=== PATIENT | female | born 1945 | race Caucasian/White ===

== ENCOUNTER 2019-11-02 16:45 | Emergency (ER) | payer MEDICARE, MEDICAID, SELFPAY ==
--- NOTE | ~2019-11-02 | XR_ITS ---
XR knee LT min 4V DATE: 11/02/2019 17:51 INDICATION: Patient fell and injured left knee. Left knee pain. TECHNIQUE: 4 views COMPARISON: 04/18/2017 left knee FINDINGS: Status post left knee arthroplasty since 04/18/2017. Diffuse osteopenia. No fracture or dislocation is evident. Mild suprapatellar knee joint effusion is suggested. No periosteal reaction or bone destruction. IMPRESSION: Left knee arthroplasty Osteopenia Mild knee joint effusion Reviewed, dictated and finalized at location A.
--- NOTE | ~2019-11-02 | XR_ITS ---
XR elbow RT 2V DATE: 11/02/2019 17:51 INDICATION: Fall. Right elbow injury, pain TECHNIQUE: 4 views COMPARISON: None FINDINGS: A small dorsal olecranon process spur is noted. Osteopenia. Osteoarthritis of the right elbow joint. No fracture or dislocation or joint effusion is detected. IMPRESSION: No fracture or dislocation or joint effusion Reviewed, dictated and finalized at location A.
--- NOTE | ~2019-11-02 | XR_ITS ---
XR forearm RT 2V DATE: 11/02/2019 18:05 INDICATION: Fall. Right forearm injury, pain TECHNIQUE: AP and lateral views COMPARISON: None FINDINGS: Diffuse prominent osteopenia. Plate and screws are noted along the distal radius. Mild dorsal olecranon process spurring. No recent fracture or dislocation is evident. Normal alignmen t at the elbow and wrist joints. Prominent osteoarthritic change at the first carpometacarpal joint. There is osteoarthritis at the fi rst metacarpophalangeal joint as well. IMPRESSION: Prominent diffuse osteopenia Status post ORIF distal radial fracture No recent fracture or dislocation is detected Prominent osteoarthritis at the first carpometacarpal joint Reviewed, dictated and finalized at location A.
--- NOTE | ~2019-11-02 | XR_ITS ---
XR hip LT min 3V w AP pelvis DATE: 11/02/2019 17:52 INDICATION: Fall. Left hip injury, pain TECHNIQUE: AP pelvis. AP, lateral and crosstable lateral views of left hip COMPARISON: None FINDINGS: Status post bilateral bipolar hip joint replacement. No pelvic or hip fracture or dislocati on is detected. No periosteal reaction or bone destruction is detected. There is prominent dextroscoliosis and degenerative disc disease of the lumbar spine. The pubic symph ysis and sacroiliac joints are intact. IVC filter device is noted. IMPRESSION: No recent pelvic or left hip fracture is detected Status post bilateral hip arthroplasties Osteopenia Reviewed, dictated and finalized at location A.
[2019-11-02 16:52] VITALS: BP 122/67; PULSE 108; RESP 18; TEMP 36.4; O2SAT 97
[2019-11-02 16:57] VITALS: BP 122/67; PULSE 108; RESP 18; TEMP 36.4; O2SAT 97
--- NOTE | 2019-11-02 16:58 | ED.FALL ---
HPI - Fall General Chief Complaint: Fall Stated Complaint: fall Time Seen by Provider: 11/02/19 16:52 History of Present Illness HPI Narrative: She had a fall about 5 hours ago. She was walking back into the house after taking out the trash. She does not recall feeling dizzy, weak, or passing out. She fell backwards and landed on her buttocks and right elbow. She only reports pain in the right elbow and left knee to me, although she did tell the nurse that her left hip was bothering her as well. Related Data Home Medications Medication Instructions Recorded Confirmed apixaban [Eliquis] mg 11/02/19 cyanocobalamin (vitamin B-12) 11/02/19 ergocalciferol (vitamin D2) 11/02/19 furosemide 11/02/19 levothyroxine 11/02/19 Allergies Allergy/AdvReac Type Severity Reaction Status Date / Time morphine Allergy Unknown UNKNOWN Verified 11/02/19 16:58 Review of Systems Review of Systems: All systems reviewed & are unremarkable except as noted in HPI and below Constitutional: Constitutional: Denies fever(s) and Denies weakness Eyes: Eyes: Denies change in vision ENT: Denies dizziness Cardiovascular: Cardiovascular: Reports chest pain, Denies rapid heart rate, Reports radiating jaw, neck or arm pain and Denies dyspnea Respiratory: Respiratory: Denies dyspnea Gastrointestinal: Gastrointestinal: Reports heartburn, Reports nausea and Denies vomiting Musculoskeletal: Musculoskeletal: Denies numbness Neurologic: Denies dizziness, Denies numbness and Denies weakness [facility] Family History Family History Other Cerebrovascular accident Diabetes mellitus Family history of arthritis Family history of cardiovascular disease Family history of malignant neoplasm Family history of mental disorder Hypertension Social History Social History Smoking status: Never smoker Alcohol intake: never Gender identity (if verbalized by the patient): Female Sexual Orientation (if Verbalized by the Patient): Straight or Heterosexual Exam Const: General: no acute distress and alert Orientation/consciousness: patient oriented x3 HENMT: Head: normal to inspection Resp: Effort & Inspection: normal respiratory effort Auscultation: clear to auscultation bilaterally Cardio: Rate: regular rate Rhythm: regular rhythm Skin: Other: skin tear to right elbow Extrem: Other: Tenderness over left patella Course Vital Signs Vital signs: Vital Signs Temperature 36.4 C 11/02/19 16:52 Pulse Rate 108 H 11/02/19 16:52 Respiratory Rate 18 11/02/19 16:52 Blood Pressure 122/67 11/02/19 16:52 Pulse Oximetry 97 11/02/19 16:52 Temperature 36.4 C 11/02/19 19:03 Pulse Rate 100 11/02/19 18:56 Respiratory Rate 17 11/02/19 18:56 Blood Pressure 139/76 11/02/19 18:56 Pulse Oximetry 90 11/02/19 18:56 MDM - Fall MDM Narrative Medical decision making narrative: No fractures. Ambulating with antalgic gait. She feels safe for discharge. Discharge Plan Discharge Clinical Impression: Effusion of knee joint, Skin tear of left elbow without complication, Hip pain Patient Disposition: Home, Self-Care Condition: Stable Instructions: Contusion in Adults (ED) Prescriptions: New tramadol 50 mg tablet 50 mg PO Q6H PRN (Reason: pain) Qty: 10 RF: 0 No Action furosemide 40 mg tablet RF: 0 levothyroxine 100 mcg tablet RF: 0 cyanocobalamin (vitamin B-12) 1,000 mcg/mL solution RF: 0 ergocalciferol (vitamin D2) 1,250 mcg (50,000 unit) capsule RF: 0 Eliquis 5 mg tablet RF: 0 Follow-up/Referrals: Harvey,Dax Abraham MD [Primary Care Provider] - Discharge Date/Time: 11/02/19 18:57
--- NOTE | 2019-11-02 18:29 | PC.NURSE ---
ambulated pt per nurse request
[2019-11-02] MEDS: traMADol HCL 50 MG TABLET PO (18:36)
--- NOTE | 2019-11-02 18:41 | PC.NURSE ---
Attempted to call patients family Rebeca at [phone] and Jessica at [phone]. No return call on patients discharge and needing a ride home.
--- NOTE | 2019-11-02 18:47 | PC.NURSE ---
Patients daughter Jessica here at this time.
[2019-11-02 18:56] VITALS: BP 139/76; PULSE 100; RESP 17; O2SAT 90
[2019-11-02 19:03] VITALS: TEMP 36.4
== END 2019-11-02 18:57 | disposition home or self-care (01) ==
PROVIDERS: Emergency Provider Emergency Medicine; PCP Internal Medicine
DX: S51.011A Laceration without foreign body of right elbow, initial encounter (principal); M25.462 Effusion, left knee; M25.552 Pain in left hip
CPT/HCPCS: 73070; 73090; 73502; 73564; 99284; A9270

== ENCOUNTER 2020-07-03 08:49 | Outpatient (CLI) | payer MEDICARE, MEDICAID, SELFPAY ==
[2020-07-03 09:26] LABS: Basophils Absolute Auto 0.1 K/mm3 (0.0-0.1); Basophils Percent Auto 1.1 % (0.2-1.2); Eosinophils Absolute Auto 0.1 K/mm3 (0-0.3); Eosinophils Percent Auto 1.4 % (0-4.4); Hematocrit 40.7 % (37.0-47.0); Hemoglobin 12.8 g/dL (12.0-15.0); Immature Granulocyte Absolute 0.03 K/mm3 (0.00-0.031); Immature Granulocyte Percent A 0.4 % (0-0.5); Lymphocytes Absolute Auto 2.14 K/mm3 (0.9-3.2); Mean Corpuscular HGB Conc 31.4 g/dl (32-36); Mean Corpuscular Hemoglobin 30.1 pg (26-34); Mean Corpuscular Volume 95.8 fl (80-100); Mean Platelet Volume 9.4 fl (7.4-10.4); Monocytes Absolute Auto 0.7 K/mm3 (0.1-0.6); Monocytes Percent Auto 8.3 % (2.6-8.5); Neutrophils Absolute Auto 4.9 K/mm3 (1.3-6.7); Neutrophils Percent Auto 61.8 % (45.5-73.1); Platelet Count Result 319 k/mm3 (150-375); Red Blood Count 4.25 M/mm3 (4.2-5.4); Red Cell Distribution Width 15.1 % (11.5-14.5); White Blood Count 7.9 K/mm3 (4.5-10.0)
[2020-07-03 09:34] LABS: Total Protein Urine Random 11 mg/dL
[2020-07-03 09:42] LABS: Albumin Level 3.9 g/dL (3.5-5.1); Anion Gap 8 mmol/L (8-16); Blood Urea Nitrogen 22 mg/dL (7-17); Calcium 8.5 mg/dL (8.4-10.2); Carbon Dioxide 22 mmol/L (22-30); Chloride 110 mmol/L (98-107); Estimated Glomerular Filt Rate 44; Glucose 94 mg/dL (65-105); Phosphorus 3.3 mg/dL (2.5-4.5); Potassium 3.2 mmol/L (3.4-5.0); Sodium 140 mmol/L (137-145); Uric Acid 8.5 mg/dL (2.5-7.5)
[2020-07-03 09:54] LABS: Parathyroid Intact 187.3 pg/mL (7.5-53.5)
[2020-07-03 10:28] LABS: Vitamin D 25 Hydroxy 48.5 ng/mL
[2020-07-03 10:39] LABS: Add Urine Microscopic? NO; Appearance Urine Clear (Clear); Bilirubin Urine Negative (Negative); Blood Urine Negative (Negative); Color Urine Colorless (Yellow); Creatinine Urine 8.5 mg/dL; Glucose Urine UA Negative (Negative); Ketones Urine Negative (Negative); Leukocyte Esterase Ur Negative LEU/UL (NEGATIVE); Nitrate Urine Negative (Negative); Protein Urine Negative (Negative); Specific Grav Ur 1.006 (1.001-1.035); Ur Ttl Prot Creatinine Ratio 1.29 mg/mg (0-0.20); Urobilinogen Urine Negative mg/dL (<2.0)
== END 2020-07-03 08:50 | disposition home or self-care (01) ==
PROVIDERS: PCP Internal Medicine
DX: E79.0 Hyperuricemia without signs of inflammatory arthritis and tophaceous disease (principal); E55.9 Vitamin D deficiency, unspecified; K57.30 Diverticulosis of large intestine without perforation or abscess without bleeding; M81.0 Age-related osteoporosis without current pathological fracture; I50.9 Heart failure, unspecified; N18.30 Chronic kidney disease, stage 3 unspecified; Z86.39 Personal history of other endocrine, nutritional and metabolic disease
CPT/HCPCS: 36415; 80069; 81003; 81050; 82306; 82570; 83970; 84156; 84550; 85025

== ENCOUNTER → 2020-12-24 12:50 | Outpatient (CLI) | payer MEDICARE, SELFPAY ==
--- NOTE | ~2020-12-24 | DEXA_ITS ---
Bone Density Report Name: Denia Tai Age: 75 Sex: Female Ethnicity: White Date of : 1945 Indication: postmenopausal; screening for osteoporosis; height loss; prior fracture; Referring Provider: JEWEL, LOVE Abraham Study: Bone densitometry was performed. Exam Date: December 24, 2020 Accession number: [id number] Bone Density: Region BMD T-score Z-score Classification AP Spine (L1-L4) 1.937 8.1 10.4 Normal World Health Organization criteria for BMD impression classify patients as: Normal (T-score at or above -1.0), Osteopenia (T-score between -1.0 and -2.5), or Osteoporosis (T-score at or below -2.5). Previous Exams: Region Exam Age BMD T-score BMD Change BMD Change Date g/cm2 vs Baseline vs Previous AP Spine(L1-L4) 12/24/2020 75 1.937 8.1 0.046* 0.046* 01/17/2018 72 1.891 7.7 *Denotes significance at 95% confidence level, LSC for AP Spine = 0.022 g/cm2 Clinical Information Provided by Patient: Has had a low trauma fracture Has used the following medications: Vitamin D Patient maximum height was 71 Menopause Age: 47 No regular weight bearing exercise Drinks caffeinated beverages Onset of menses at age 15 Number of children 5 Impression: The patient has normal bone mass. The patient has risk factors, including: previous fracture. No significant bone loss was observed. Discussion: LOW RISK OF FRACTURE; BONE DENSITY IS WELL ABOVE THE MINIMUM DESIRABLE LEVEL AND ABOVE AVERAGE FOR AGE AND SEX AT ALL SKELETAL SITES TESTED. This person's bone density is above expected limits for age and sex. This is rarely clinically significant, but should be pursued if there are significant musculoskeletal complaints. The patient should follow a healthful lifestyle (good nutrition with adequate calcium and vitamin D, and appropriate weight-bearing exercise). Follow-Up: Consider repeating this study in 5 years or sooner if there is some new clinical indication. Reported by: [facility] on 12/24/2020 1:38:00 PM. Reviewed, dictated and finalized at location AShaquille OCHOA
--- NOTE | ~2020-12-24 | MM_ITS ---
EXAMINATION: MM screening [facility] BI w lino HISTORY: Screening mammogram TECHNIQUE: Craniocaudal and mediolateral oblique 3-D tomosynthesis images were obtained and synthetic 2-D images were generated. CAD analysis was submitted and interpreted. COMPARISON: 05/09/2019, 01/17/2018 12/15/2016 BREAST PARENCHYMAL COMPOSITION: There are scattered areas of fibroglandular density. FINDINGS: There is no evidence of suspicious mass, calcification, or architectural distortion to sugg est malignancy in either breast. There has been no suspicious interval change. IMPRESSION: 1. No mammographic evidence of malignancy. 2. Recommend routine screening mammography in one year. BI-RADS Category 1: Negative Reviewed, dictated and finalized at location A.
== END ==
PROVIDERS: PCP Internal Medicine; Visit Provider Internal Medicine
DX: Z12.31 Encounter for screening mammogram for malignant neoplasm of breast (principal); Z78.0 Asymptomatic menopausal state
CPT/HCPCS: 77063; 77067; 77080

== ENCOUNTER → 2022-07-11 15:33 | Outpatient (CLI) | payer MEDICARE, SELFPAY ==
--- NOTE | ~2022-07-11 | MM_ITS ---
EXAMINATION: MM screening [facility] w [facility] HISTORY: Screening mammogram TECHNIQUE: Craniocaudal and mediolateral oblique 3-D tomosynthesis images were obtained and synthetic 2-D images were generated. CAD analysis was submitted and interpreted. COMPARISON: 12/24/2020, 05/09/2019, 01/17/2018 bilateral screening mammogram examinations BREAST PARENCHYMAL COMPOSITION: There are scattered areas of fibroglandular density. FINDINGS: There is no evidence of suspicious mass, calcification, or architectural distortion to sugg est malignancy in either breast. There has been no suspicious interval change. IMPRESSION: 1. No mammographic evidence of malignancy. 2. Recommend routine screening mammography in one year. BI-RADS Category 1: Negative Reviewed, dictated and finalized at location A.
== END ==
PROVIDERS: PCP Internal Medicine; Visit Provider Internal Medicine
DX: Z12.31 Encounter for screening mammogram for malignant neoplasm of breast (principal)
CPT/HCPCS: 77063; 77067

== ENCOUNTER 2023-02-04 12:32 | Emergency (ER) | payer MEDICARE, MEDICAID, SELFPAY ==
[2023-02-04] VITALS (52 sets, daily range): BP systolic 84–127; BP diastolic 42–79; PULSE 60–114; RESP 12–27; TEMP 34.9–36.6; O2SAT 96–100
--- NOTE | ~2023-02-04 | CT_ITS ---
EXAMINATION: CT abdomen pelvis w con DATE: 02/04/2023 14:46 INDICATION: diarrhea, hypotension TECHNIQUE: Computed tomography (CT) of the abdomen and pelvis was performed with 100 mL Omnipaque-350 intravenous contrast. Automated exposure control and iterative reconstruction technique were employe d. The dose-length product was 577.34 mGy-cm. COMPARISON: None. FINDINGS: Lower thorax: Mitral and possible coronary artery calcifications. Senescent changes in the lung bases . Liver: Normal. Biliary/Gallbladder: Gallbladder is normal. Mild intra and extrahepatic bile duct dilation, stable. Pancreas: Mild atrophy. Prominent duct, stable. 6 mm uncinate prostate cyst. Spleen: Normal. Adrenals:No mass. Kidneys: No suspicious mass, obstructing stone, or hydronephrosis. GI tract: Prior gastric surgery. No small or large bowel dilation. Normal appendix. Mesentery/Peritoneum: No ascites, mass, or free air. Retroperitoneum: No mass. Atherosclerotic abdominal aortic and/or arterial calcifications. IVC filter . Pelvis: Obscuration by metal artifact. Pelvic organs are grossly within normal limits. Soft Tissues: Soft tissues and body wall unremarkable. Bones: No acute osseous finding. Uncomplicated partially visualized bilateral hip arthroplasties. Di ffuse osseous sclerosis, unchanged. Stable mild wedge compression fractures at T10-T12 IMPRESSION: No acute abdominopelvic process detected. 6 mm uncinate process cyst, recommend follow-up in [address]. Reviewed, dictated and finalized at location K. IMPRESSION: No acute abdominopelvic process detected. 6 mm uncinate process cyst, recommend follow-up in 2 years with pancreas protoc ol CT.
--- NOTE | ~2023-02-04 | XR_ITS ---
XR chest 2V DATE: 02/04/2023 13:30 INDICATION: Weakness TECHNIQUE: AP and lateral views COMPARISON: 07/18/2018 CT chest FINDINGS: Cardiomegaly. Aortic calcification, ectasia and tortuosity. Mild atelectasis at the basilar left lower lobe. The lungs otherwise appear clear. No pleural effusion or pulmonary vascular congestion or pneumothorax is detected. Dextro scoliosis and degenerative change of the thoracolumbar spine. Postoperative change of the upper abdomen. IVC filter. IMPRESSION: Mild atelectasis at the basilar left lower lobe Cardiomegaly, aortic atherosclerosis Reviewed, dictated and finalized at location A.
--- NOTE | 2023-02-04 13:09 | PC.NURSE ---
report and care given to ELI Reilly. all questions answered.
--- NOTE | 2023-02-04 13:15 | PC.NURSE ---
Patient report received from ELI Caro. All questions answered and care of patient assumed.
--- NOTE | 2023-02-04 13:21 | ED.WEAKNESS ---
HPI - Weakness General Chief complaint: Weakness Stated complaint: weakness Time Seen by Provider: 02/04/23 13:15 History of Present Illness HPI Narrative: Patient is a 77-year-old female with a history of paroxysmal A-fib on Eliquis, CHF, hypothyroidism presenting with weakness. Patient states that she has had diarrhea for the last 3 to 4 days. She checks her blood pressure every day and it was in the 80s systolic this morning so she called her daughter who brought her in for evaluation. Patient states that she feels generally weak and like it is hard to walk. States that she felt lightheaded this morning. States that she still eating and drinking okay. Denies vomiting, dysuria, hematuria, abdominal pain. Denies chest pain, shortness of breath, cough. Related Data Home Medications Medication Instructions Recorded Confirmed apixaban 5 mg tablet (Eliquis) mg 11/02/19 11/11/22 cyanocobalamin (vitamin B-12) 11/02/19 11/11/22 1,000 mcg/mL injection solution ergocalciferol (vitamin D2) 1,250 11/02/19 11/11/22 mcg (50,000 unit) capsule furosemide 40 mg tablet 11/02/19 11/11/22 levothyroxine 100 mcg tablet 11/02/19 11/11/22 Allergies Allergy/AdvReac Type Severity Reaction Status Date / Time morphine Allergy Unknown UNKNOWN Verified 11/11/22 11:30 Review of Systems Review of Systems: All systems reviewed & are unremarkable except as noted in HPI and below PMFSH Surgical History Surgical History 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 Family History Family History Other Cerebrovascular accident Diabetes mellitus Family history of arthritis Family history of cardiovascular disease Family history of malignant neoplasm Family history of mental disorder Hypertension Social History Social History Smoking status: Never smoker Alcohol intake: never Gender identity (if verbalized by the patient): Female Sexual Orientation (if Verbalized by the Patient): Straight or Heterosexual Exam Narrative: GENERAL: Well-appearing, in no acute distress, very pleasant and cooperative HEAD: Normocephalic, atraumatic. EYES: PERRLA and EOMI. ENT: Mucous membranes tacky NECK: Supple. CHEST: Clear to auscultation. No respiratory distress. HEART: Regular rate and rhythm. Normal peripheral pulses. ABDOMEN: Soft, nontender, nondistended EXTREMITIES: Normal range of motion. No edema. SKIN: Warm, dry, no rash. NEURO: No focal deficits. Alert and oriented x3. PSYCH: Normal mood and affect. Course Vital Signs Vital signs: Vital Signs Temperature 97.9 F 02/04/23 12:38 Pulse Rate 93 02/04/23 12:38 Respiratory Rate 16 02/04/23 12:38 Blood Pressure 102/77 02/04/23 12:38 Pulse Oximetry 99 02/04/23 12:38 Oxygen Delivery Room Air 02/04/23 12:38 Temperature 94.9 F L 02/04/23 12:58 Pulse Rate 92 02/04/23 18:58 Respiratory Rate 14 02/04/23 18:58 Blood Pressure 120/42 L 02/04/23 18:58 Pulse Oximetry 99 02/04/23 18:58 Oxygen Delivery Room Air 02/04/23 12:38 MDM - Weakness MDM Narrative Medical decision making narrative: 77-year-old female presenting with generalized weakness, lightheadedness, hypotension. Blood pressures in the 80s over 60s on arrival. Afebrile. Exam remarkable for the above. Plan for blood work, fluids, CT abdomen pelvis. Blood work with mild hypokalemia. Otherwise unremarkable. No leukocytosis. Troponins negative x2. UA is unremarkable. Patient is negative for influenza and COVID. Chest x-ray without acute abnormalities. CT abdomen pelvis without acute abnormalities. There is a small pancreatic mass that just needs to be followed up on on an outpatient basis. Patient is tolerating p.o. intake. Blood pressure is improved following IV fluids. Orthostatic
[2023-02-04 13:25] LABS: Basophils Absolute Auto 0.1 K/mm3 (0.0-0.1); Eosinophils Absolute Auto 0.1 K/mm3 (0-0.3); Eosinophils Percent Auto 1.2 % (0-4.4); Hematocrit 42.7 % (37.0-47.0); Hemoglobin 13.5 g/dL (12.0-15.0); Immature Granulocyte Absolute 0.07 K/mm3 (0.00-0.031); Lymphocytes Absolute Auto 1.78 K/mm3 (0.9-3.2); Lymphocytes Percent Auto 25.9 % (18.3-44.2); Mean Corpuscular HGB Conc 31.6 g/dl (32-36); Mean Corpuscular Hemoglobin 31.1 pg (26-34); Mean Corpuscular Volume 98.4 fl (80-100); Mean Platelet Volume 9.8 fl (7.4-10.4); Monocytes Absolute Auto 0.8 K/mm3 (0.1-0.6); Monocytes Percent Auto 12.2 % (2.6-8.5); Neutrophils Percent Auto 58.7 % (45.5-73.1); Nucleated Red Blood Cells Perc 0.3 % (0.0-0.2); Platelet Count Result 349 k/mm3 (150-375); Red Blood Count 4.34 M/mm3 (4.2-5.4); Red Cell Distribution Width 16.2 % (11.5-14.5); White Blood Count 6.9 K/mm3 (4.5-10.0)
--- NOTE | 2023-02-04 13:27 | PC.NURSE ---
Patient off unit to radiology.
[2023-02-04] MEDS: SODIUM CHLORIDE 0.9% IV 1,000 ML 999 ML IV CONT ×2 (13:31→16:45)
[2023-02-04 13:40] LABS: Alanine Aminotransferase 23 U/L (6-35); Albumin Level 3.7 g/dL (3.5-5.1); Alkaline Phosphatase 272 U/L (38-126); Anion Gap 13 mmol/L (8-16); Aspartate Amino Transferase 33 U/L (14-36); Bilirubin,Total 0.5 mg/dL (0.2-1.3); Blood Urea Nitrogen 12 mg/dL (7-17); Calcium 8.5 mg/dL (8.4-10.2); Carbon Dioxide 16 mmol/L (22-30); Chloride 107 mmol/L (98-107); Estimated CRCL calculation 31 ml/min; Estimated Glomerular Filt Rate 44; Glucose 104 mg/dL (65-110); Potassium 3.1 mmol/L (3.4-5.0); Sodium 136 mmol/L (137-145)
[2023-02-04 13:51] LABS: Lipase 293 U/L (23-300); Magnesium 2.2 mg/dL (1.6-2.3)
[2023-02-04 13:56] LABS: Platelet Estimate Adequate (Adequate)
[2023-02-04 13:57] LABS: Anisocytosis 2+ (NORMAL); Atypical Lymphocytes Present; Macrocytosis 1+ (NORMAL); Schistocytes None Seen (NORMAL)
[2023-02-04 14:04] LABS: Troponin I 0.012 ng/mL (0.000-0.034)
[2023-02-04 14:28] LABS: INR 1.6
[2023-02-04 14:29] LABS: Partial Thromboplastin Time 39.9 SECONDS (22.3-36.8)
--- NOTE | 2023-02-04 14:36 | PC.NURSE ---
Patient off unit to CT.
[2023-02-04 14:38] LABS: Influenza A QL RT-PCR Negative (Negative); Influenza B QL RT-PCR Negative (Negative); SARS-CoV-2 RNA PCR Negative (Negative)
[2023-02-04 15:39] LABS: Appearance Urine Clear (Clear); Bilirubin Urine Negative (Negative); Blood Urine Negative (Negative); Color Urine Yellow (Yellow); Glucose Urine UA Negative (Negative); Ketones Urine Negative (Negative); Leukocyte Esterase Ur Negative LEU/UL (Negative); Nitrate Urine Negative (Negative); Protein Urine Negative (Negative); Specific Grav Ur <= 1.005 (1.001-1.035); Urobilinogen Urine 0.2 mg/dL (<2.0)
[2023-02-04 15:47] LABS: Add Urine Microscopic? NO
[2023-02-04 17:17] LABS: Troponin I < 0.012 ng/mL (0.000-0.034)
[2023-02-04] MEDS: POTASSIUM CHLORIDE 20 MEQ PACKET (FOR LIQUID) 40 MEQ PO (19:18)
== END 2023-02-04 19:42 | disposition home or self-care (01) ==
PROVIDERS: Emergency Medicine; Emergency Provider Emergency Medicine; PCP Internal Medicine
DX: R19.7 Diarrhea, unspecified (principal); R42 Dizziness and giddiness; I95.9 Hypotension, unspecified; Z20.822 Contact with and (suspected) exposure to COVID-19; I48.91 Unspecified atrial fibrillation; I50.9 Heart failure, unspecified; E03.9 Hypothyroidism, unspecified; Z96.651 Presence of right artificial knee joint; Z79.01 Long term (current) use of anticoagulants; I51.7 Cardiomegaly; I70.0 Atherosclerosis of aorta; K86.2 Cyst of pancreas
CPT/HCPCS: 36415; 71046; 74177; 80053; 81003; 83605; 83690; 83735; 84484; 85025; 85610; 85730; 87040; 87636; 96360; 96361; 99284; A9270; J7030; Q9967

== ENCOUNTER 2023-11-03 13:13 | Emergency (ER) | payer MEDICARE, SELFPAY ==
[2023-11-03] VITALS (23 sets, daily range): BP systolic 102–133; BP diastolic 58–97; PULSE 65–109; RESP 13–23; TEMP 36.9; O2SAT 96–100
--- NOTE | ~2023-11-03 | CT_ITS ---
CT brain wo con Ordering provider: Steffany Monsalve MD History: 78 years Female with . Fall . Comparison: None. Technique: CT of the head without contrast. Radiation reduction technique utilized. DLP is 605.33 mGy. FINDINGS: BRAIN PARENCHYMA AND CSF SPACES: Mild leukoaraiosis and diffuse cortical atrophy. Mild atheromatous d isease. No midline shift, mass effect or hemorrhage. The brain parenchyma and CSF spaces are otherwi se normal. VISUALIZED PARANASAL SINUSES: Well aerated. MASTOIDS: Well aerated. BONES: The bones appear intact. SOFT TISSUES: Visualized nasopharynx is normal. Superficial soft tissues are normal. IMPRESSION: No acute intracranial findings. Reviewed, dictated and finalized at location A.
--- NOTE | ~2023-11-03 | XR_ITS ---
EXAMINATION: XR shoulder LT min 2V DATE: 11/03/2023 15:21 INDICATION: Left shoulder injury post fall TECHNIQUE: AP internally rotated, AP externally rotated and transscapular Y views of the left shoulde r were obtained. COMPARISON: None FINDINGS: Again seen is diffuse sclerosis of the bones. Normal alignment. No fracture.Mild acromioclavicular o steoarthritis with prominent inferiorly directed osteophyte at the lateral head of the clavicle. Visu alized portion of the upper lungs are clear. Soft tissues are unremarkable. IMPRESSION: Diffuse sclerosis of the bones without acute osseous abnormality. Differential for the sclerosis woul d include metastatic disease, renal osteodystrophy, myelofibrosis or other myelodysplastic disorder. Reviewed, dictated and finalized at location B. IMPRESSION: Diffuse sclerosis of the bones without acute osseous abnormality. Differential for the sclerosis would include metastatic disease, renal osteodystrophy, myelo fibrosis or other myelodysplastic disorder.
--- NOTE | ~2023-11-03 | CT_ITS ---
CT facial & cervical spine wo Ordering provider: Steffany Monsalve MD History: . Fall . Comparison: None. Technique: Thin slice axial CT of the facial bones was performed without contrast. Coronal and sagit annette reformatted images were also obtained. . Automated exposure control and iterative reconstruction technique were employed. The dose-length product was 185.39 mGy-cm. FINDINGS: PARANASAL SINUSES: Well aerated. BONES: No facial fracture including no nasal bone fracture. ORBITS AND SUPERFICIAL SOFT TISSUES: The optic globes and orbits are normal. The superficial soft tis sues are normal. VISUALIZED MASTOIDS: Well aerated. LIMITED VISUALIZED BRAIN PARENCHYMA: Normal. IMPRESSION: No facial fracture. CT facial & cervical spine wo Ordering provider: Steffany Monsalve MD History: . Fall . Comparison: None. Technique: CT of the cervical spine was performed without contrast. Sagittal and coronal reformatted images were also obtained and reviewed. Automated exposure control and iterative reconstruction shahzad hnique were employed. The dose-length product was 185.39 mGy-cm. FINDINGS: VERTEBRAE: No subluxation or acute fracture. The occipital condyles are intact. Sclerotic changes in the spine are noted. Metastatic disease should be considered. Clinical correlation advised. Degenerative changes of the spine are noted. DISC SPACES: Narrowing of the disc C3-C4, and C5-C6.. Multilevel facet joint disease. Multilevel unco vertebral joint osteoarthritic changes. Bilateral narrowing of the foramina at the level of C3-C4. Na rrowing of the right foramen at the level of C4-C5 PARASPINOUS SOFT TISSUES: Normal. IMPRESSION: No acute osseous abnormality cervical spine. Sclerotic changes of the spine. Clinical correlation advised. Reviewed, dictated and finalized at location A. IMPRESSION: No facial fracture. CT facial & cervical spine wo Ordering provider: Steffany Monsalve MD History: . Fall . Comparison: None. Technique: CT of the cervical spine was performed without contrast. Sagittal a nd coronal reformatted images were also obtained and reviewed. Automated expos ure control and iterative reconstruction technique were employed. The dose-amirah th product was 185.39 mGy-cm. FINDINGS: VERTEBRAE: No subluxation or acute fracture. The occipital condyles are intact. Sclerotic changes in the spine are noted. Metastatic disease should be consid ered. Clinical correlation advised. Degenerative changes of the spine are noted. DISC SPACES: Narrowing of the disc C3-C4, and C5-C6.. Multilevel facet joint di sease. Multilevel uncovertebral joint osteoarthritic changes. Bilateral narrowi ng of the foramina at the level of C3-C4. Narrowing of the right foramen at the level of C4-C5 PARASPINOUS SOFT TISSUES: Normal.
--- NOTE | 2023-11-03 15:21 | ED.FALL ---
HPI - Fall General Chief Complaint: Fall Stated Complaint: FALL Time Seen by Provider: 11/03/23 14:49 History of Present Illness HPI Narrative: Patient is a 78-year-old female who presents to the emergency department this afternoon after a. Patient states that she was getting out of her car and was trying to take a step over a curb and accidentally tripped and fell forward. Patient does have a laceration to her left eyebrow region and skin tears to her left roman catholic and ear. patient denies any loss of consciousness and was ambulatory after the fall. Patient is currently on a blood thinner Eliquis. She is complaining of mild left shoulder soreness otherwise denies any additional symptoms or concerns. Patient is currently on a C-collar placed by EMS prior to arrival. Related Data Home Medications Medication Instructions Recorded Confirmed apixaban 5 mg tablet (Eliquis) mg 11/02/19 11/11/22 cyanocobalamin (vitamin B-12) 11/02/19 11/11/22 1,000 mcg/mL injection solution ergocalciferol (vitamin D2) 1,250 11/02/19 11/11/22 mcg (50,000 unit) capsule furosemide 40 mg tablet 11/02/19 11/11/22 levothyroxine 100 mcg tablet 11/02/19 11/11/22 Allergies Allergy/AdvReac Type Severity Reaction Status Date / Time morphine Allergy Unknown UNKNOWN Verified 11/11/22 11:30 Review of Systems Review of Systems: All systems are reviewed and are negative unless stated otherwise in the HPI. [facility] Surgical History Surgical History 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 Family History Family History Other Cerebrovascular accident Diabetes mellitus Family history of arthritis Family history of cardiovascular disease Family history of malignant neoplasm Family history of mental disorder Hypertension Social History Social History Smoking status: Never smoker Alcohol intake: never Gender identity (if verbalized by the patient): Female Sexual Orientation (if Verbalized by the Patient): Straight or Heterosexual Exam Narrative: General: Alert, awake, afebrile, in no acute distress. HEENT: PERRL, no rhinorrhea, no post nasal drip, oropharynx clear, laceration to the left eyebrow, skin tear to left roman catholic and left ear, patient does have a small irregular hematoma to her left ear with overlying laceration that is actively draining the hematoma. Cardiovascular: Regular rate and rhythm, no murmurs, rubs or gallops, no peripheral edema. Respiratory: Clear to auscultation bilaterally, no tachypnea, no wheezing, no rhonchi, no rubs, no respiratory distress. Abdomen: Soft, nontender, nondistended, no rebound, no guarding, no peritoneal signs. Musculoskeletal: No joint swelling or deformity, normal muscle tone, abrasion to left shoulder joint with intact range of motion of the left shoulder without any pain, patient has limited motion of the right shoulder joint which is chronic due to a rotator cuff tear. Skin: No rashes or petechia, no signs of infection. Neurological: Alert and oriented to person, place, and time. Follows all commands. No focal deficits, speech is clear and fluent. Course Vital Signs Vital signs: Vital Signs Temperature 98.5 F 11/03/23 13:13 Pulse Rate 85 11/03/23 13:13 Respiratory Rate 22 H 11/03/23 13:13 Blood Pressure 114/74 11/03/23 13:13 Pulse Oximetry 98 11/03/23 13:13 Oxygen Delivery Room Air 11/03/23 13:13 Temperature 98.5 F 11/03/23 13:13 Pulse Rate 91 11/03/23 13:46 Respiratory Rate 13 11/03/23 13:46 Blood Pressure 105/61 11/03/23 13:45 Pulse Oximetry 98 11/03/23 13:45 Oxygen Delivery Room Air 11/03/23 13:13 MDM - Fall MDM Narrative Medical decision making narrative: The patient was evaluated by myself in the emergency department. History is obtained fro
[2023-11-03] MEDS: LIDOCAINE HCL 1% LOCAL INJ 10 ML VIAL INFILTRATE (15:33)
--- NOTE | 2023-11-03 15:55 | PC.NURSE ---
c-collar removed per provider
[2023-11-03] MEDS: TETANUS,DIPHTHERIA,AC PERTUSSIS ADULT (0.5 ML) BOOSTRIX IM (16:50)
== END 2023-11-03 16:59 | disposition home or self-care (01) ==
PROVIDERS: Emergency Provider Emergency Medicine; PCP Internal Medicine
DX: S01.112A Laceration without foreign body of left eyelid and periocular area, initial encounter (principal); S00.432A Contusion of left ear, initial encounter; S40.212A Abrasion of left shoulder, initial encounter; Z23 Encounter for immunization; I48.91 Unspecified atrial fibrillation; I50.9 Heart failure, unspecified; M81.0 Age-related osteoporosis without current pathological fracture; Z96.651 Presence of right artificial knee joint; Z79.899 Other long term (current) drug therapy; Z79.01 Long term (current) use of anticoagulants; M89.8X1 Other specified disorders of bone, shoulder; W10.1XXA Fall (on)(from) sidewalk curb, initial encounter
CPT/HCPCS: 12011; 70450; 70486; 72125; 73030; 90471; 90715; 99284

== ENCOUNTER 2024-12-13 18:37 | Emergency (ER) | payer MEDICARE, SELFPAY ==
--- NOTE | ~2024-12-13 | XR_ITS ---
HISTORY: pain COMPARISON: None TECHNIQUE: 3 views of the right elbow were performed FINDINGS: No acute fracture is identified. No elevation of the anterior or posterior fat pads are identified to suggest a supracondylar fracture . Overlying soft tissues are unremarkable. Diffuse bony demineralization. Significant degenerative disease with joint space narrowing. .Ossification of the insertion of the triceps tendon is present. IMPRESSION: Degenerative disease, without acute fracture. Reviewed, dictated and finalized at location A.
--- NOTE | ~2024-12-13 | XR_ITS ---
HISTORY: pain COMPARISON: None TECHNIQUE: 2 views of the right forearm were performed FINDINGS: Plate and screw fixation of the distal radius is present. Diffuse bony demineralization is also noted. No significant soft tissue swelling is present. Ossification of the insertion of the triceps tendon is noted. IMPRESSION: Degenerative disease, without acute fracture. Reviewed, dictated and finalized at location A.
--- OUTSIDE RECORDS SUMMARY | 2024-12-13 18:40 | XMS_ITS | Clinical Summary ---
Author Organization [facility] Address [address] [place] [address] Care Team Providers Care Electric Meter Reader Name Role Phone Riley Aguila DO Primary Care Provider Rodolfo Conteh MD Unavailable [phone] Srini Briceno MD Unavailable [phone] Janak Dill MD Unavailable [phone] Alejo Howell MD Unavailable Source Comments [facility],non-owned Affiliates and Associated Physician Practices is amultiple site organization consisting of ambulatory clinics and hospital sitesin [place], [place], [place] and [place]. This disclosure is being madepursuant to the Care Everywhere program and may not contain all information available regarding this patient. Last updated 18.[facility] Allergies Active Allergy Reactions Criticality Noted Date Comments Morphine Nausea and/or Vomiting 09/09/2008 Medications * Be aware that medications may not be up to date on this document. Alwaysverify current medications with the patient. cyanocobalamin (VITAMIN B 12) injection Inject 1000 mcg into muscle every 30 days. Active Calcium Carb-Cholecalcife rol (CALCIUM 1000 + D PO) Take 1 Tab by mouth once daily. Active multivitamin daily (THERAGRAN) tablet Take 1 Tab by mouth once daily. 0 4 Active Ferrous Sulfate (IRON) 325 (65 FE) MG TABS Once a day OTC 4 Active levothyroxine (SYNTHROID) 112 MCG tablet TAKE ONE TABLET BY MOUTH IN THE MORNING BEFORE BREAKFAST 90 Tab 1 5 Active furosemide (LASIX) 40 MG tablet Take 1 Tab by mouth once daily 90 Tab 2 5 Active losartan (COZAAR) 50 MG tabletIndications :Benign essential hypertension Take 1 Tab by mouth once daily 90 Tab 1 5 Active Active Problems Problem Noted Date Diagnosed Date Hypothyroidism due to acquired atrophy of thyroi d 02/26/2015 CKD (chronic kidney disease) stage 2, GFR 60-89 ml/min 02/26/2015 Left knee pain 12/29/2014 Left hip pain 12/29/2014 Obesity (BMI 30.0-34.9) 08/28/2014 Tremor of unknown origin 08/28/2012 Left thigh pain 02/27/2012 Overview (02/27/2012): Mid-thigh w/o radiation. Makes leg give out at times. Dysuria 12/27/2011 Low back pain 12/20/2011 Thigh pain, musculoskeletal 12/20/2011 CHF (congestive heart failure) 10/11/2011 TRICUSPID REGURGITATION 10/11/2011 Overview (10/11/2011): TRICUSPID REGURGITATION GERD (gastroesophageal reflux disease) 2 MR (mitral regurgitation) 10/11/2011 Edema 10/11/2011 Right forearm pain 08/17/2011 History of chest pain 06/27/2011 URI (upper respiratory infection) 06/27/2011 Nonspecific abnormal electrocardiogram (ECG) (EK G) 06/27/2011 Overview (06/27/2011): SR with left axis deviation. Possible old septal infarct. Status post gastric bypass for obesity 2 Sleep disturbance 04/12/2011 Snoring 04/12/2011 Asthma 09/16/2010 Allergic rhinitis 09/16/2010 Cough 08/04/2010 Shortness of breath 08/04/2010 Benign essential hypertension 03/18/2010 Pain in joint, shoulder region 02/18/2010 Nausea & vomiting 2009 Abdominal pain, periumbilical 05/26/2009 Iron deficiency anemia 09/09/2008 B12 deficiency anemia 09/09/2008 Vitamin D deficiency 09/09/2008 Overview (09/09/2008): 2007 Right hip pain 09/09/2008 Resolved Problems Problem Noted Date Diagnosed Date Resolved Date Need for hepatitis C screening test 08/20/2013 02/19/2014 Screening for condition 09/09/200811/2009 Overview (01/29/2015): Adult Abstraction Problem List Screening Colonoscopy: Result: Not avail in chart Date: 02/05/03 Dexa Scan (Bone Density): Result: Not avail in chart Date: Not avail in chart Mammogram: Result: Not avail in chart Date: 2008 Morbid obesity 09/09/2008 08/28/2014 Immunizations Immunization Administration Dates Next Due INFLUENZA VACCINE 02/13/2015,01/29/2003 INFLUENZA VACCINE, HIGH-DOSE , QUADR. (FLUZONE HIGH-DOSE QUADRIVALENT; 65Y+), 0.7 ML (HD-IIV4) 02/19/2014 Family History Medical History Relation Name Comments Cancer Brother Metastatic canc er, type unknown. 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 Gender Identity Not on file Sexual Orientation Not on file 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 Not on file Not on file Not on file Last Filed Vital Signs Vital Sign Reading Time Taken Comments Blood Pressure 116/64 02/26/2015 9:49 AM CDT Pulse 62 02/26/2015 9:49 AM CDT Temperature 37.1 C (98.7 F) 08/28/2014 2:34 PM CDT Respiratory Rate 14 02/26/2015 9:49 AM CDT Oxygen Saturation 100% 10/14/2011 10:47 AM CDT Inhaled Oxygen Concentration 21% 10/14/2011 1 0:47 AM CDT roomair Weight 94.3 kg (208 lb) 02/26/2015 9:49 AM CDT Height 162.6 cm (5' 4.02) 02/26/2015 9:49 AM CD T Body Mass Index 35.69 02/26/2015 9:49 AM CDT Plan of Treatment Health Maintenance Due Date Last Done Comments BONE DENSITY TESTING 1945 DTAP/TDAP/TD VACCINES (1 - Tdap) 08/05/1966 PNEUMOCOCCAL VACCINE 50+ (1 of 2 - PCV) 08/05/1966 ZOSTER VACCINE (1 of 2) 08/05/1997 Respiratory Syncytial Virus (RSV) Vaccine Pt: or over 60 yrs (1 - 1-dose 75+ series) 08/05/2022 COVID-19 VACCINE (1 - 2023-2 5 season) 2023 DEPRESSION SCREENING 05/01/2024 INFLUENZA VACCINE (#1) 2024 5, 02/19/2014, 01/29/2003 HEPATITIS C SCREENING Completed 08/21/2013 HEPATITIS B VACCINE Aged Out No longe r eligible based on patient's age to complete this topic HIB VACCINE Aged Out No longer eligi ble based on patient's age to complete this topic HPV VACCINE Aged Out No longer eligi ble based on patient's age to complete this topic MENINGOCOCCAL (Group B) VACCINE SHARED DECISION-MAKING Aged Out No longer eligible based on patient's age to complete this topic MENINGOCOCCAL GROUPS A/C/Y/W VACCINE Aged Out No longer eligible b ased on patient's age to complete this topic Goals Goal Patient Goal Type Associated Problems Recent Progress Patient-Stated? Author Blood Pressure < 140/90 Blood Pressure 116/64( 015 9:49 AM CDT) No Cristel Landis, VARUN-PRISCILLA Procedures Procedure Name Priority Date/Time Associated Diagnosis Comments HEPATITIS C ANTIBODY Routine 08/21/2013 9:40 AM CDT Need for hepatitis C screening test from Last 3 Months or Most Recently Relevant to Health Maintenance Results * HEPATITIS C ANTIBODY (08/21/2013 9:40 AM CDT) Hepatitis C Antibody 0.3 0.0 - 0.9 s/co ratio [facility] ACCOUNT BILL Comment: Negative: < 0.8 Indeterminate 0.8 - 0.9 Positive: > 0.9 . In order to reduce the incidence of a false positive result, the CDC recommends that all s/co ratios between 1.0 and 10.9 be confirmed by a more specific supplemental or PCR testing. [facility] w/Reflex to Verification test #[id number]. Blood specimen (specimen) BLOOD SPECIMEN / Unknown 08/21/2013 9:40 AM CDT 08/21/2013 12:44 PM CDT Narrative Resulting Agency Comment [facility] [place] [address] [facility] [id number] Riley Aguila DO LAB - CHEMISTRY ORDERABLES Final Result [facility] ACCOUNT BILL [address] [place] [address] from Last 3 Months or Most Recently Relevant to Health Maintenance Insurance MEDICARE MEDICAID - [place] Care Teams Electric Meter Reader Relationship Specialty Start Date End Date Mingo Riley KramerDO PCP - General 09/09/08 [place] [address] [facility] [address] [place] [address] Pulmonary Disease 08/09/11 [place] [address] [address] Cardiovascular Disease 10/11/11 Janak Dill MD [address] [place] [address] Home Performance Laborer/Oncologist Oncology 02/19/14 Alejo Howell MD [address] [place] [address] Collaborating Physician Endocrinology 02/19/14
--- OUTSIDE RECORDS SUMMARY | 2024-12-13 18:40 | XMS_ITS | Patient Health Record ---
Author Organization [facility] Address [address] [facility] [address] [facility] [address] [place] [address] Care Team Providers Care Tank House Operator Name Role Phone Claudia Glasgow Unavailable [phone] Reason For Referral No Information Medications Medication SIG (Take, Route, Frequency, Duration) Notes Start Date End Date Status Vitamin D (Ergocalciferol) 1.25 MG (75405 UT) TAKE 1 CAPSULE BY MOUTH ONCE MONTHLY; Duration: 84 Activ e Potassium Chloride ER 20 MEQ 2 tablet with food Orally Once a day; Duration: 90 days Active Problems Problem Type SNOMED Code ICD Code Onset Dates Problem Status W/U Status Risk Notes Problem Anemia (907819129) Anemia, unspecified (D64.9) Active confirmed Problem Vitamin D deficiency (23412611) Vitamin D deficiency, unspecified (E55.9) Active confirmed Problem Hypokalemia (88231278) Hypokalemia (E87.6) Active confirmed Problem Atrial fibrillation (39211672) Unspecified atrial fibrillation (I48.91) Active confirmed Problem Edema (07513826) Edema, unspecified (R60.9) Active confirmed Problem Abnormal metabolic state due to diabetes mellitus (517575168) Abnormal metabolic state due to diabetes mellitus (E11.9) Active confirmed Problem Chronic kidney disease stage 3A (disorder) (689556262) Chronic kidney disease, stage 3a (N18.31) Active confirmed Encounters Encounter Location Date Provider Diagnosis [facility] [address] [facility] [address] [place] [address] 12/18/2023 Claudia Glasgow Chronic kidney disease, stage 3a N18.31 ; Edema, unspecified R60.9 ; Vitamin D deficiency, unspecified E55.9 and Anemia, unspecified D64.9 Assessments Encounter Date Diagnosis (ICD Code) Assessment Notes Treatment Notes Treatment Clinical Notes Section Notes 12/18/2023 Edema, unspecified (ICD-10 - R60.9) 12/18/2023 Chronic kidney disease, stage 3a (ICD-10 - N18.31) 12/18/2023 Vitamin D deficiency, unspecified (ICD-10 - E55.9) 12/18/2023 Anemia, unspecified (ICD-10 - D64.9) Plan Of Treatment Pending Test Test Name Order Date PTH, INTACT AND CALCIUM (8837) 3 RENAL FUNCTION PANEL (89511) 04/11/2023 MAGNESIUM (622) 04/11/2023 URIC ACID (905) 04/11/2023 CBC (INCLUDES DIFF/PLT) (6399) 3 VITAMIN D,25-OH,TOTAL,IA (48470) 023
--- OUTSIDE RECORDS SUMMARY | 2024-12-13 18:41 | XMS_ITS ---
Author Organization [facility] Address [address] [place] [address] Care Team Providers Care Recyclable Products Sorter Name Role Phone Claudia Garcia Unavailable [phone] Encounters Encounter Location Date Provider Diagnosis [place] [facility] [address] [place] [address] 04/15/2024 Claudia Garcia Plan Of Treatment No Information Progress Notes * TRENT BTUTERFIELDEDOB:1945 ( 79 yo F)Acc No.[id number]:04/15/2024 Progress Notes Patient: TOM HARVEY Provider: Laura GARCIA M.D :1945 A ge:78 Y S ex:Female Date:04/15/2024 [address] [address] Subjective: * Chief Complaints: * * Medical History: Objective: * Vitals: Assessment: Plan: * Treatment: * Billing Information: * Visit Code: * Procedure Codes: * Electronic signature of Milo Garcia MD on 12/13/2024 at 06:40 PM CDT Sign off status: Pending * Provider: Laura GARCIA M.D Date: 06/16/2023 Generated for Regina randall/Rosanna/eTransmitting on: 12/13/2024 06:40 PM CDT
--- OUTSIDE RECORDS SUMMARY | 2024-12-13 18:41 | XMS_ITS ---
Author Organization [facility] Address [address] [place] [address] Care Team Providers Care Book Sewer Name Role Phone PeeRolanda lopezhit Unavailable [phone] Problems Problem Type SNOMED Code ICD Code Onset Dates Problem Status W/U Status Risk Notes Problem Edema (61380317) Edema, unspecified (R60.9) Active confirmed Problem Anemia (066510835) Anemia, unspecified (D64.9) Active confirmed Encounters Encounter Location Date Provider Diagnosis [place] [facility] [address] [facility] [address] [place] [address] 12/18/2023 Claudia Garcia Chronic kidney disease, stage 3a N18.31 ; Edema, unspecified R60.9 ; Vitamin D deficiency, unspecified E55.9 and Anemia, unspecified D64.9 Assessments Encounter Date Diagnosis (ICD Code) Assessment Notes Treatment Notes Treatment Clinical Notes Section Notes 12/18/2023 Chronic kidney disease, stage 3a (ICD-10 - N18.31) 12/18/2023 Edema, unspecified (ICD-10 - R60.9) 12/18/2023 Vitamin D deficiency, unspecified (ICD-10 - E55.9) 12/18/2023 Anemia, unspecified (ICD-10 - D64.9) Plan Of Treatment No Information Progress Notes * TRENT BUTTERFIELDEDOB:1945 ( 79 yo F)Acc No.[id number]:12/18/2023 Progress Notes Patient: TOM HARVEY Provider: Laura GARCIA M.D :1945 A ge:78 Y S ex:Female Date:12/18/2023 Address:[address] [facility] Subjective: * Chief Complaints: * * Medical History: Objective: * Vitals: Assessment: * Assessment: 1. C hronic kidney disease, stage 3a - N18.31 (Primary) 2 . E felix, unspecified - R60.9 3 . V itamin D deficiency, unspecified - E55.9 4 .?Anemia, unspecified - D64.9 Plan: * Treatment: * Billing Information: * Visit Code: 05977 Office Visit, Est Pt., Level 3. * Procedure Codes: * Electronic signature of Milo Garcia MD on 12/13/2024 at 06:40 PM CDT Sign off status: Pending * Provider: Laura GARCIA M.D Date: 0 12/18/2023 Generated for Regina randall/Rosanna/Baylee on: 0 12/13/2024 06:40 PM CDT
--- OUTSIDE RECORDS SUMMARY | 2024-12-13 18:41 | XMS_ITS | Clinical Summary ---
Author Organization [facility] [place] [address] Address [address] [place] [address] Care Team Providers Care Parts Counter Specialist Name Role Phone Dax Gabriel MD Primary Care Provider Allergies Active Allergy Reactions Criticality Noted Date Comments Morphine Nausea & Vomiting Low Opioids - Morphine Analogues Medications cyanocobalamin (Vitamin B-12) 1,000 mcg/mL injection Take as directed 1 ml q month 0 0 9 Active ergocalciferol (VITAMIN D) 50,000 unit capsule Take 1 capsule (50,000 Units total) by mouth every 30 (thirty) days 2 7 Active acetaminophen (TYLENOL) 500 mg tablet Take 2 tablets (1,000 mg total) by mouth every 6 (six) hours as needed for pain Active cetirizine (ZyrTEC) 10 mg tablet Take 1 tablet (10 mg total) by mouth daily Active levothyroxine (SYNTHROID) 88 mcg tablet Take 1 tablet (88 mcg total) by mouth medical educator before breakfast Active potassium chloride ER (KLOR-CON) 10 mEq CR tablet Take 1 tablet/capsule (10 mEq total) by mouth daily Active Eliquis 5 mg tablet TAKE 1 TABLET BY MOUTH TWICE A DAY 180 tablet 2 Active bumetanide (BUMEX) 2 mg tablet Take 1 tablet (2 mg total) by mouth every morning 3 Active Active Problems Problem Noted Date Diagnosed Date Obstruction of esophagus due to food impaction 0 08/09/2018 Moderate malnutrition 07/29/2018 Esophageal perforation 07/22/2018 Overview (07/25/2018): Added automatically from request for surgery [id number] Chronic anticoagulation 06/26/2018 Chronic atrial fibrillation 12/14/2017 Mitral valve regurgitation 12/29/2016 Aortic regurgitation 12/29/2016 Osteoporosis 09/14/2013 Overview (08/05/2016): OSTEOPOROSIS NOS Hypoglycemia 09/14/2013 Overview (08/05/2016): HYPOGLYCEMIA NOS Hypothyroidism 09/14/2013 Overview (08/05/2016): HYPOTHYROIDISM NOS Encounters Date Type Department Care Team Description 09/20/2024 11:15 AM CDT Office Visit [facility] [address] [place] [address] Chinmay Chi MD Chronic atrial fibrillation (HCC) (Primary Dx) from Last 3 Months Surgical History Surgery Date Site/Laterality Comments HIP ARTHROPLASTY 2009 Hip replacement CHOLECYSTECTOMY Cholecystectomy Medical History Medical History Date Comments Hx Other Medical Gastric bypass surgery. Anemia Anemia Disorder of thyroid Thyroid dise ase Hypertension Hypertension Osteoporosis Osteoporosis Hx Other Medical CHF Family History Medical History Relation Name Comments Diabetes type II Other 1 Family hist ory of Diabetes -Type II; Hypertension Other 2 Family history of Hypertension; Thyroid disease Other 3 Family histo ry of Thyroid disorder; Relation Name Status Comments Other 1 Other 2 Other 3 Social History Tobacco Use Types Packs/Day Years Used Date Smoking Tobacco: Never Smokeless Tobacco: Never Tobacco Cessation:Counseling Given: Not Answered Alcohol Use Standard Drinks/Week Comments No 0 (1 standard drink = 0.6 oz pur e alcohol) Comments No Sex and Gender Information Value Date Recorded Sex Assigned at Not on file 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 Gender Identity Not on file Sexual Orientation Not on file Obstetrics History Last Filed Vital Signs Vital Sign Reading Time Taken Comments Blood Pressure 126/86 09/20/2024 11:29 AM CDT Pulse 93 09/20/2024 11:29 AM CDT Temperature 37 C (98.6 F) 08/20/2018 9:51 AM CDT Respiratory Rate 16 08/04/2018 11:48 AM CDT Oxygen Saturation 97% 09/20/2024 11:29 AM CDT Inhaled Oxygen Concentration - - Weight 70.3 kg (155 lb) 09/20/2024 11:29 AM CDT Height 162.6 cm (5' 4) 09/20/2024 11:29 AM CDT Body Mass Index 26.61 09/20/2024 11:29 AM CDT Plan of Treatment Health Maintenance Due Date Last Done Comments Depression Screening 1945 Fall Risk Assessment 1945 Hepatitis C Screening 1945 DTaP/Tdap/Td Vaccine (1 - Tdap) 08/05/1958 Hepatitis B Screening 08/05/1965 Well Visit 65+ 08/05/2012 Osteoporosis Screening-Bone Density Scan 10/05/2015 10/04/2013 Zoster Vaccine (2 of 2) 06/30/2019 05/05/2019 Covid-19 Vaccine (4 - 2023-2 5 season) 2023 04/04/2021, 09/21/2020, 08/31/2020 Influenza Vaccine (#1) 2024 , 01/16/2020, 01/24/2019, Additional history exists Breast Cancer Screening-Mammogram Discontinued 10/10/2014, 10/04/2013, 06/18/2012 Colon Cancer Screening-CT Colonography Discontinued 10/17/2014, 10/17/2014, 10/17/2014 Colon Cancer Screening-Colonoscopy Discontinued 10/17/2014, 10/17/2014, 10/17/2014 Colon Cancer Screening-DNA Stool Discontinued 10/17/2014, 10/17/2014, 10/17/2014 Colon Cancer Screening-FIT Discontinued 10/17, 10/17/2014, 10/17/2014 Colon Cancer Screening-FOBT Discontinued 09/29, 10/17/2014, 10/17/2014 Colon Cancer Screening-Sigmoidoscopy Discontinued 10/17/2014, 10/17/2014, 10/17/2014 Colorectal Cancer Screening Discontinued Pneumococcal vaccine 65+ Completed 019, 05/09/2016, 02/13/2015 Procedures Procedure Name Priority Date/Time Associated Diagnosis Comments COLONOSCOPY 10/17/2014 12:00 AM CDT DIAGNOSTIC MAMMOGRAM BILATERAL W ARDEN Routine 10/10/2014 8:15 AM CDT DEXA AXIAL SKELETON BONE DENSITY 1 OR MORE SITES Routine 10/04/2013 11:08 AM CDT from Last 3 Months or Most Recently Relevant to Health Maintenance Results * COLONOSCOPY (10/17/2014 12:00 AM CDT) Anatomical Region Laterality Modality Other Narrative 10/17/2014 12:00 AM CDT Ordered by an unspecified provider. Procedure Note Provider, Prachi, - 10/17/2014 12:00 AM CDT PROCEDURE REPORT Patient: DENIA BUTTERFIELD Account: [id number] Room No: : 1945 Patient Type: [facility] Attend.: Bib Steinberg M.D. Admit Date: 10/17/2014 Dict.: Bib Steinberg M.D. Disch. Date: 10/17/2014 NAME OF PROCEDURE: Colonoscopy. HISTORY: This is a 69-year-old female who presents for screeningcolonoscopy. PHYSICAL EXAMINATION: GENERAL: Well-developed female. LUNGS: Clear. CARDIOVASCULAR: Unremarkable. PROCEDURE: Colonoscopy was performed with an Olympus video endoscope.The patient was premedicated by anesthesia. On digital exam, she has got gradeIII hemorrhoids. We inserted the endoscope and advanced it to the cecum. Thecolon prep was excellent. We carefully searched the mucosa and could find no abnormalities except for sigmoid diverticula. Otherwise, the colon waswell prepped, well visualized and normal. The patient tolerated the procedure without difficulty. POSTOPERATIVE DIAGNOSES: 1. Sigmoid diverticulosis. 2. Hemorrhoidal disease. PLAN: Surveillance in 10 years. Bib Steinberg M.D. DR/kristal TD: 10/17/2014 15:00 CC: Leida Martinez [facility] Electronically Authenticated by: Bib Steinberg MD On 10/20/2014 07:30 AM CDT us Historical Provider ENDOSCOPY PROCEDURES Lizbeth l Result * Diagnostic Mammogram Bilateral W [place] (10/10/2014 8:15 AM CDT) Anatomical Region Laterality Modality Breast Bilateral Mammography 10/10/2014 8:15 AM CDT Narrative 10/10/2014 3:12 PM CDT Acc#: [id number] [facility] [id number] - Screening Mamm W Arden Bi DATE OF EXAM: Oct 10 2014 8:15AM DIAGNOSIS: SCREEN MAMMOGRAPHY NEC CLINICAL HISTORY: mammogram RESULT: \ EXAM: BILATERAL DIGITAL SCREENING MAMMOGRAM WITH DIGITAL TOMOSYNTHESIS DATE: 10/10/2014 CLINICAL HISTORY: Screening in an asymptomatic postmenopausal patient with no personal or family history of breast cancer TECHNIQUE: Bilateral full field digital mammography and digital tomosynthesis were performed in the CC and MLO projections. Comparison was made to prior mammograms from 10/04/2013, 06/18/2012, 06/10/2011, 03/17/2010 and 03/16/2009. CAD was utilized. FINDINGS: The breast parenchyma is fatty. The parenchymal pattern is unchanged when compared to the prior exams. There is no new nodule, mass, area of architectural distortion or suspicious microcalcification. IMPRESSION: \ BIRADS CATEGORY 1, NEGATIVE MAMMOGRAM. RECOMMEND YEARLY BILATERAL SCREENING MAMMOGRAM. TECHNOLOGIST: HIGINIO LOPEZ, TECHNOLOGIST MEDICAL IMAGING HAND DRAWER IN: GUILLERMO TRANSCRIBE DATE/TIME: Oct 10 2014 1:47P RADIOLOGIST: REESE SHARMA M.D. READ ON: Oct 10 2014 1:44P ORDERING DR: ADRIANE MEYER M.D. THIS DOCUMENT HAS BEEN ELECTRONICALLY SIGNED BY: REESE SHARMA M.D. ON: Oct 10 2014 3:12P HAND DRAWER IN: GUILLERMO TRANSCRIBE DATE/TIME: Oct 10 2014 1:47P RADIOLOGIST: REESE SHARMA M.D. READ ON: Oct 10 2014 1:44P ORDERING DR: ADRIANE MEYER M.D. THIS DOCUMENT HAS BEEN ELECTRONICALLY SIGNED BY: REESE SHARMA M.D. ON: Oct 10 2014 3:12P Attending: ADRIANE MEYER Requesting: ADRIANE MEYER Requesting Attending Attending ID: [id number] Requesting ID: [id number] Report To 1 ID: Report To 1 Name: , Report To 1 FAX: -- Report To 2 ID: Report To 2 Name: , Report To 2 FAX: -- NextGen Order #: Procedure Note Provider, MD Prachi - 08/31/2016 Acc#: [id number] [facility] 0034 - Screening Mamm W [place] Bi DATE OF EXAM: Oct 10 2014 8:15AM DIAGNOSIS: SCREEN MAMMOGRAPHY NEC CLINICAL HISTORY: mammogram RESULT: \ EXAM: BILATERAL DIGITAL SCREENING MAMMOGRAM WITH DIGITAL TOMOSYNTHESIS DATE: 10/10/2014 CLINICAL HISTORY: Screening in an asymptomatic postmenopausal patient with no personal or family history of breast cancer TECHNIQUE: Bilateral full field digital mammography and digital tomosynthesis were performed in the CC and MLO projections. Comparison was made to prior mammograms from 10/04/2013, 06/18/2012, 06/10/2011, 03/17/2010 and 03/16/2009. CAD was utilized. FINDINGS: The breast parenchyma is fatty. The parenchymal pattern is unchanged when compared to the prior exams. There is no new nodule, mass, area of architectural distortion or suspicious microcalcification. IMPRESSION: \ BIRADS CATEGORY 1, NEGATIVE MAMMOGRAM. RECOMMEND YEARLY BILATERAL SCREENING MAMMOGRAM. TECHNOLOGIST: HIGINIO LOPEZ, TECHNOLOGIST MEDICAL IMAGING HAND DRAWER IN: GUILLERMO TRANSCRIBE DATE/TIME: Oct 10 2014 1:47P RADIOLOGIST: REESE SHARMA M.D. READ ON: Oct 10 2014 1:44P ORDERING DR: ADRIANE MEYER M.D. THIS DOCUMENT HAS BEEN ELECTRONICALLY SIGNED BY: REESE SHARMA M.D. ON: Oct 10 2014 3:12P HAND DRAWER IN: GUILLERMO TRANSCRIBE DATE/TIME: Oct 10 2014 1:47P RADIOLOGIST: REESE SHARMA M.D. READ ON: Oct 10 2014 1:44P ORDERING DR: ADRIANE MEYER M.D. THIS DOCUMENT HAS BEEN ELECTRONICALLY SIGNED BY: REESE SHARMA M.D. ON: Oct 10 2014 3:12P Attending: ADRIANE MEYER Requesting: ADRIANE MEYER Requesting Attending Attending ID: [id number] Requesting ID: [id number] Report To 1 ID: Report To 1 Name: , Report To 1 FAX: -- Report To 2 ID: Report To 2 Name: , Report To 2 FAX: -- NextGen Order #: us Historical Provider MD JAQUEZ MAMMO PROCEDURES Lizbeth l Result * Dexa Axial Skeleton Bone Density 1 or 2 Site (10/04/2013 11:08 AM CDT) Anatomical Region Laterality Modality N/A Nuclear Medicine 10/04/2013 11:0 8 AM CDT Narrative 10/04/2013 12:56 PM CDT IMAGES NOT AVAILABLE IN CLINICAL DESKTOP FILM(S) AVAILABLE IN RADIOLOGY DATE OF EXAM: Oct 04 2013 11:08AM Acc#: [id number] [facility] 0001 - DEXA Bone Density Axial DIAGNOSIS: SCREEN MAMMOGRAPHY NEC DISORDER BONE CART NOS CLINICAL HISTORY: SCREENING MAMMOGRAPHY NEC RESULT: \ EXAM: DEXA BONE DENSITOMETRY DATE: 10/04/2013 CLINICAL HISTORY: Postmenopausal, osteoporosis screen COMPARISON: December 23. T-SCORE: Bone mineral densitometry studies were performed utilizing images obtained of the lumbar spine and an anterior image of the left hip. Important findings include the following T-score results and the patient's percentages of normal compared to young adults. T-score % of Normal AP lumbar spine = 5.5 158% Total hip= Not performed as patient has bilateral total hip arthroplasties. Femoral neck= Not performed as patient has bilateral total hip arthroplasties. The T-score compares the patient's bone mineral density to peak bone mass of young normal adults - the more negative the number, the greater the loss of bone. IMPRESSION: The results of this patient's bone mineral density test are normal. This assessment is based upon comparison with the average value found in healthy young adults. In no area tested, was the bone loss greater than 10%. The T-score of the AP lumbar spine is consistent with normal bone stock. Bone mineral density of the AP lumbar spine has increased 37.3% compared to the prior exam and increased 54.7% compared to baseline. TREATMENT RECOMMENDATIONS: The patient is on a daily calcium supplement (600 mg a day), which should be continued. The patient is not on an antiresorptive medicine. The patient has been taking levothyroxine for thyroid hormone replacement since 1989. FOLLOW-UP RECOMMENDATIONS: Followup exam in three to five years is recommended. HAND DRAWER IN: JAMES TRANSCRIBE DATE/TIME: Oct 04 2013 12:51P RADIOLOGIST: REESE SHARMA M.D. READ ON: Oct 04 2013 12:12P ORDERING DR: ADRIANE MEYER M.D. THIS DOCUMENT HAS BEEN ELECTRONICALLY SIGNED BY: REESE SAHRMA M.D. ON: Oct 04 2013 12:56P Requesting Procedure Note Provider, MD Prachi - 08/31/2016 IMAGES NOT AVAILABLE IN CLINICAL DESKTOP FILM(S) AVAILABLE IN RADIOLOGY DATE OF EXAM: Oct 04 2013 11:08AM Acc#: [id number] [facility] 0001 - DEXA Bone Density Axial DIAGNOSIS: SCREEN MAMMOGRAPHY NEC DISORDER BONE CART NOS CLINICAL HISTORY: SCREENING MAMMOGRAPHY NEC RESULT: \ EXAM: DEXA BONE DENSITOMETRY DATE: 10/04/2013 CLINICAL HISTORY: Postmenopausal, osteoporosis screen COMPARISON: December 23. T-SCORE: Bone mineral densitometry studies were performed utilizing images obtained of the lumbar spine and an anterior image of the left hip. Important findings include the following T-score results and the patient's percentages of normal compared to young adults. T-score % of Normal AP lumbar spine = 5.5 158% Total hip= Not performed as patient has bilateral total hip arthroplasties. Femoral neck= Not performed as patient has bilateral total hip arthroplasties. The T-score compares the patient's bone mineral density to peak bone mass of young normal adults - the more negative the number, the greater the loss of bone. IMPRESSION: The results of this patient's bone mineral density test are normal. This assessment is based upon comparison with the average value found in healthy young adults. In no area tested, was the bone loss greater than 10%. The T-score of the AP lumbar spine is consistent with normal bone stock. Bone mineral density of the AP lumbar spine has increased 37.3% compared to the prior exam and increased 54.7% compared to baseline. TREATMENT RECOMMENDATIONS: The patient is on a daily calcium supplement (600 mg a day), which should be continued. The patient is not on an antiresorptive medicine. The patient has been taking levothyroxine for thyroid hormone replacement since 1989. FOLLOW-UP RECOMMENDATIONS: Followup exam in three to five years is recommended. HAND DRAWER IN: JAMES TRANSCRIBE DATE/TIME: Oct 04 2013 12:51P RADIOLOGIST: REESE SHARMA M.D. READ ON: Oct 04 2013 12:12P ORDERING DR: ADRIANE MEYER M.D. THIS DOCUMENT HAS BEEN ELECTRONICALLY SIGNED BY: REESE SHARMA M.D. ON: Oct 04 2013 12:56P Requesting us Historical Provider MD JAQUEZ DXA PROCEDURES Final Result from Last 3 Months or Most Recently Relevant to Health Maintenance Insurance MEDICARE MEDICARE [facility] [place] [address] MEDICARE Advance Directives For more information, please contact: [phone] * Full Code (Latest Code Status on File) Date Activated Date Inactivated Comments 07/23/2018 3:04 AM 08/04/2018 7:20 PM Care Teams Parts Counter Specialist Relationship Specialty Start Date End Date Dax Gabriel MD PCP - General 04/19/10
--- OUTSIDE RECORDS SUMMARY | 2024-12-13 18:41 | XMS_ITS | Clinical Summary ---
Author Organization [facility] Address [address], [facility] [address] [place] [address] Phone Care Team Providers Care Straight Edger Name Role Phone Dax Gabriel MD Primary Care Provider [phone] Allergies Active Allergy Reactions Criticality Noted Date Comments Morphine Nausea 07/14/2016 Medications furosemide (LASIX) 40 MG Tablet daily. 0 7 Active levothyroxine (SYNTHROID) 100 MCG Tablet Take 100 mcg by mouth daily. 1 7 Active Multiple Vitamins-Minera ls (MULTIVITAMIN PO) Take by mouth daily. Active Calcium Citrate-Vitamin D (CALCIUM + D PO) Take by mouth daily. Active Ferrous Sulfate (IRON) 325 (65 Fe) MG Tablet daily. 4 Active acetaminophen (TYLENOL) 500 MG Tablet Take 500 mg by mouth every 4 hours as needed for Pain. Active cetirizine (ZYRTEC ALLERGY) 10 MG Tablet Take 10 mg by mouth daily as needed. Active losartan (COZAAR) 50 MG Tablet Take 50 mg by mouth daily. Active Cholecalciferol (VITAMIN D3) 1000 UNIT Tablet Take by mouth daily. Active XARELTO 20 MG Tablet daily. 10 8 Active cyanocobalamin (VITAMIN B-12) 1000 MCG/ML Solution INJECT 1 ML BY SUBCUTANEOUS ROUTE EVERY 30 DAYS. 3 mL 8 Active SYRINGE-NEEDLE, DISP, 3 ML (B-D 3CC LUER-REED SYR 25GX1) 25G X 1 3 ML MiscIndications :Anemia in chronic kidney disease, unspecified CKD stage Use with B12 injection. 2 Each 9 Active Active Problems Patient Care Coordination No te Formatting of this note migh t be different from the original. NO CA DX 05/24/18 Problem Noted Date Diagnosed Date Anemia in chronic kidney disease 07/14/2016 Family History Medical History Relation Name Comments Cancer Brother mestatic lung Cancer Father prostate Heart Disease Father Diabetes Mother Hypertension Mother Stroke Mother Diabetes Sister Relation Name Status Comments Brother Father Mother Sister Social History Tobacco Use Types Packs/Day Years Used Date Smoking Tobacco: Never Smokeless Tobacco: Never Alcohol Use Standard Drinks/Week Comments No 0 (1 standard drink = 0.6 oz pur e alcohol) Comments Unknown Sex and Gender Information Value Date Recorded Sex Assigned at Not on file 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 Gender Identity Not on file Sexual Orientation Not on file Last Filed Vital Signs Vital Sign Reading Time Taken Comments Blood Pressure 110/74 11/23/2017 1:59 PM CDT Pulse 68 11/23/2017 1:59 PM CDT Temperature 36.5 C (97.7 F) 11/23/2017 1:59 PM CDT Respiratory Rate 18 11/23/2017 1:59 PM CDT Oxygen Saturation 94% 11/23/2017 1:59 PM CDT Inhaled Oxygen Concentration - - Weight 89.4 kg (197 lb 3.2 oz) 11/23/2017 1:59 P M CDT Height 162.6 cm (5' 4) 11/23/2017 1:59 PM CDT Body Mass Index 33.85 11/23/2017 1:59 PM CDT Plan of Treatment Health Maintenance Due Date Last Done Comments Hepatitis C Virus (HCV) Screening 1945 TdaP Immunization 1945 Pneumococcal Immunization (5 0+ years) (1 of 1 - PCV) 08/05/1997 Zoster Immunization (1 of 2) 08/05/1997 Respiratory Syncytial Virus (RSV) Immunization (Adult) (1 - 1-dose 75+ series) 08/05/2022 SARS-COV-2 Immunization (1 - 2023-25 season) 2023 Influenza Immunization (#1) 2024 Hepatitis B Immunization Aged Out No longer eligible based on patient's age to complete this topic Human Papillomavirus (HPV) Immunization Aged Out No longer eligible b ased on patient's age to complete this topic Meningococcal Immunization (ACWY) Aged Out No longer eligible based on patient's age to complete this topic Rotavirus Immunization Aged Out No lo nger eligible based on patient's age to complete this topic Insurance MEDICARE [place]ICAID [place] Care Teams Straight Edger Relationship Specialty Start Date End Date Dax Gabriel MD PCP - General Internal Medicine 05/03/16
--- OUTSIDE RECORDS SUMMARY | 2024-12-13 18:41 | XMS_ITS ---
Author Organization [facility] Address [address] [place] [address] Care Team Providers Care Child Welfare Director Name Role Phone Claudia Garcia Unavailable [phone] Encounters Encounter Location Date Provider Diagnosis [facility] [place] [facility] [address] [place] [address] 10/09/2023 Claudia Garcia Plan Of Treatment No Information Progress Notes * DIMITRY BUTTERFIELDOB:1945 ( 79 yo F)Acc No.[id number]:10/09/2023 Progress Notes Patient: ALDO HARVEYYCE Provider: Laura GARCIA M.D :1945 A ge:78 Y S ex:Female Date:10/09/2023 [facility] [place] [address] Subjective: * Chief Complaints: * * Medical History: Objective: * Vitals: Assessment: Plan: * Treatment: * Billing Information: * Visit Code: * Procedure Codes: * Electronic signature of Milo Garcia MD on 12/13/2024 at 06:40 PM CDT Sign off status: Pending * Provider: Laura GARCIA M.D Date: 10/09/2023 Generated for Regina randall/Rosanna/Baylee on: 12/13/2024 06:40 PM CDT
[2024-12-13 18:45] VITALS: BP 163/88; PULSE 85; RESP 16; TEMP 36.7; O2SAT 99
--- OUTSIDE RECORDS SUMMARY | 2024-12-13 19:13 | XMS_ITS | Clinical Summary ---
Author Organization [facility] [place] [address] Address [address] [place] [address] Care Team Providers Care Computer Aided Design Designer Name Role Phone Dax Gabriel MD Primary [...] 1 tablet (88 mcg total) by mouth sports marketing specialist before breakfast Active potassium chloride ER (KLOR-CON) [...] (07/25/2018): Added automatically from request for surgery [id number] Chronic anticoagulation 06/26/2018 Chronic atrial fibrillation 12/14/2017 Mitral valve regurgitation 12/29/2016 Aortic regurgitation 12/29/2016 Osteoporosis 09/14/2013 Overview (08/05/2016): OSTEOPOROSIS NOS Hypoglycemia 09/14/2013 Overview (08/05/2016): HYPOGLYCEMIA NOS Hypothyroidism 09/14/2013 Overview (08/05/2016): HYPOTHYROIDISM NOS Encounters Date Type Department Care Team Description 09/20/2024 11:15 AM CDT Office Visit [facility] Cardiology [address] [place] [address] Chinmay Chi MD Chronic atrial [...] on file 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 Admit Date: 10/17/2014 [...] TD: 10/17/2014 15:00 CC: Leida Martinez [facility] Electronically Authenticated by: Bib Steinberg MD On 10/20/2014 07:30 AM CDT us Historical Provider ENDOSCOPY PROCEDURES Lizbeth l Result * Diagnostic Mammogram Bilateral [place] (10/10/2014 8:15 AM CDT) Anatomical Region Laterality Modality Breast Bilateral Mammography 10/10/2014 8:15 AM CDT Narrative 10/10/2014 3:12 PM CDT Acc#: [id number] [facility] 0034 - Screening Mamm W [...] MAMMOGRAM. TECHNOLOGIST: HIGINIO LOPEZ, TECHNOLOGIST MEDICAL IMAGING PEARL DIVER: GUILLERMO TRANSCRIBE DATE/TIME: Oct 10 2014 1:47P RADIOLOGIST: REESE SHARMA M.D. READ ON: Oct 10 2014 1:44P ORDERING DR: ADRIANE MEYER M.D. THIS DOCUMENT HAS BEEN ELECTRONICALLY SIGNED BY: REESE SHARMA M.D. ON: Oct 10 2014 3:12P PEARL DIVER: GUILLERMO TRANSCRIBE DATE/TIME: Oct 10 2014 1:47P RADIOLOGIST: REESE SHARMA M.D. READ ON: Oct 10 2014 1:44P ORDERING DR: ADRIANE MEYER M.D. THIS DOCUMENT HAS BEEN ELECTRONICALLY SIGNED BY: REESE SHARMA M.D. ON: Oct 10 2014 3:12P Attending: ADRIANE MEYER Requesting: ADRIANE MEYER Requesting Attending Attending ID: [id number] Requesting ID: [id number] Report To 1 ID: Report To 1 Name: , Report To 1 FAX: -- Report To 2 ID: Report To 2 Name: , Report To 2 FAX: -- NextGen Order #: Procedure Note Provider, MD Prachi - 08/31/2016 Acc#: [id number] [facility] 0034 - Screening Mamm W [...] MAMMOGRAM. TECHNOLOGIST: HIGINIO LOPEZ, TECHNOLOGIST MEDICAL IMAGING PEARL DIVER: GUILLERMO TRANSCRIBE DATE/TIME: Oct 10 2014 1:47P RADIOLOGIST: REESE SHARMA M.D. READ ON: Oct 10 2014 1:44P ORDERING DR: ADRIANE MEYER M.D. THIS DOCUMENT HAS BEEN ELECTRONICALLY SIGNED BY: REESE SHARMA M.D. ON: Oct 10 2014 3:12P PEARL DIVER: GUILLERMO TRANSCRIBE DATE/TIME: Oct 10 2014 1:47P RADIOLOGIST: REESE SHARMA M.D. READ ON: Oct 10 2014 1:44P ORDERING DR: ADRIANE MEYER M.D. THIS DOCUMENT HAS BEEN ELECTRONICALLY SIGNED BY: REESE SHARMA M.D. ON: Oct 10 2014 3:12P Attending: ADRIANE MEYER Requesting: ADRIANE MEYER Requesting Attending Attending ID: [id number] Requesting ID: [id number] Report To 1 ID: Report To 1 [...] OF EXAM: Oct 04 2013 11:08AM Acc#: [id number] [facility] 0001 - DEXA Bone Density Axial [...] in three to five years is recommended. PEARL DIVER: JAMES TRANSCRIBE DATE/TIME: Oct 04 2013 12:51P RADIOLOGIST: REESE SHARMA M.D. READ ON: Oct 04 2013 12:12P ORDERING DR: ADRIANE MEYER M.D. THIS DOCUMENT HAS BEEN ELECTRONICALLY SIGNED BY: REESE SHARMA M.D. ON: Oct 04 2013 12:56P Requesting Procedure Note Provider, MD Prachi - 08/31/2016 IMAGES NOT AVAILABLE IN CLINICAL DESKTOP FILM(S) AVAILABLE IN RADIOLOGY DATE OF EXAM: Oct 04 2013 11:08AM Acc#: [id number] [facility] 0001 - DEXA Bone Density Axial [...] in three to five years is recommended. PEARL DIVER: JAMES TRANSCRIBE DATE/TIME: Oct 04 2013 12:51P RADIOLOGIST: REESE SHARMA M.D. READ ON: Oct 04 2013 12:12P ORDERING DR: ADRIANE MEYER M.D. THIS DOCUMENT HAS BEEN ELECTRONICALLY SIGNED BY: REESE SHARMA M.D. ON: Oct 04 2013 12:56P Requesting us Historical Provider MD JAQUEZ DXA PROCEDURES Final Result from Last 3 Months or Most Recently Relevant to Health Maintenance Insurance MEDICARE MEDICARE [facility] [place] [address] MEDICARE Advance Directives For more information, please contact: [phone] * Full Code (Latest Code Status on File) Date Activated Date Inactivated Comments 07/23/2018 3:04 AM 08/04/2018 7:20 PM Care Teams Computer Aided Design Designer Relationship Specialty Start Date End Date Dax Gabriel MD PCP - General 04/19/10
--- OUTSIDE RECORDS SUMMARY | 2024-12-13 19:13 | XMS_ITS | Clinical Summary ---
Author Organization [facility] Address [address] [place] [address] Care Team Providers Care Facilities Supervisor Name Role Phone Riley Aguila DO Primary Care Provider [phone] Rodolfo Conteh MD Unavailable [phone] Srini Briceno MD Unavailable [phone] Janak Dill MD Unavailable [phone] Alejo Howell MD Unavailable Source Comments [facility],non-owned Affiliates and Associated Physician Practices is amultiple site organization consisting of ambulatory clinics and hospital sitesin [place], [place] and [place]. This disclosure is being madepursuant to the Care Everywhere program and may not contain all information available regarding this patient. Last updated 18.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 [facility] Ab w/Reflex to Verification test #[id number]. Blood specimen (specimen) BLOOD SPECIMEN / Unknown 08/21/2013 9:40 AM CDT 08/21/2013 12:44 PM CDT Narrative Resulting Agency Comment [facility] [address] [facility] [id number] Riley Aguila DO LAB - CHEMISTRY ORDERABLES Final Result [facility] ACCOUNT BILL [address] [place] [address] from Last 3 Months or Most Recently Relevant to Health Maintenance Insurance MEDICARE MEDICAID - [place] Care Teams Facilities Supervisor Relationship Specialty Start Date End Date Mingo Riley KramerDO PCP - General 09/09/08 [place] [id number] [facility] [address] [place] [address] Pulmonary Disease 08/09/11 [place] [address] [address] Cardiovascular Disease 10/11/11 Janak Dill MD [address] [place] [address] Corporate Risk Analyst/Oncologist Oncology 02/19/14 Alejo Howell MD [address] [place] [address] Collaborating Physician Endocrinology 02/19/14
--- OUTSIDE RECORDS SUMMARY | 2024-12-13 19:13 | XMS_ITS | Clinical Summary ---
Author Organization [facility] Address [address], [facility] [address] [place] [address] Phone Care Team Providers Care Advertising Material Distributor Name Role Phone Dax Gabriel MD Primary Care Provider [phone] Allergies Active Allergy Reactions Criticality Noted Date [...] on file Legal Sex Female 1:57 PM POLYSOM TECH Gender Identity Not on file Sexual Orientation [...] topic Insurance MEDICARE [place]ICAID [place] Care Teams Advertising Material Distributor Relationship Specialty Start Date End Date Dax Gabriel MD PCP - General Internal Medicine 05/03/16
--- NOTE | 2024-12-13 20:22 | ED.UPPEXIN ---
HPI - Extremity Injury (Upper) General Chief Complaint: Extremity Injury, Upper Stated Complaint: right arm injury/pain Time Seen by Provider: 12/13/24 19:02 History of Present Illness HPI narrative: 79-year-old female with a past medical history including hypertension, CHF, atrial fibrillation on Eliquis. Patient presents to the emergency depart with right elbow pain. She states that she did not injure her fall or anything like that but that she was having some pain when she extended her elbow. Has a history of osteoporosis and arthritis. Has taken Tylenol at home without any pain relief as well as a tried to apply Biofreeze without any relief. No traumatic injuries. Was otherwise in her normal state of health. Good single pointed operator strength and wrist strength. She has a previous plate in her right wrist and a rotator cuff has been torn previously. No new injuries or medical status changes. Related Data Home Medications ?Medication ?Instructions ?Recorded ?Confirmed ?Last Taken ?Type apixaban 5 mg tablet (Eliquis) mg 11/02/19 11/11/22 Unknown History cyanocobalamin (vitamin B-12) 11/02/19 11/11/22 Unknown History 1,000 mcg/mL injection solution ergocalciferol (vitamin D2) 1,250 11/02/19 11/11/22 Unknown History mcg (50,000 unit) capsule furosemide 40 mg tablet 11/02/19 11/11/22 Unknown History levothyroxine 100 mcg tablet 11/02/19 11/11/22 Unknown History Allergies Allergy/AdvReac Type Severity Reaction Status Date / Time morphine Allergy Unknown UNKNOWN Verified 12/13/24 18:48 Review of Systems Review of Systems: As reviewed above in HPI REPLACED BY [facility] Surgical History Surgical History 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 Family History Family History Other Cerebrovascular accident Diabetes mellitus Family history of arthritis Family history of cardiovascular disease Family history of malignant neoplasm Family history of mental disorder Hypertension Social History Social History Smoking status: Never smoker Alcohol intake: never Gender identity (if verbalized by the patient): Female Sexual Orientation (if Verbalized by the Patient): Straight or Heterosexual Exam Narrative: GENERAL: [Well-appearing, well-nourished, and in no acute distress.] HEAD: [Normocephalic, atraumatic.] EYES: [PERRLA and EOMI.] ENT: Nares clear, no rhinorrhea or epistaxis. Mucous membranes moist. NECK: Supple. CHEST: [Clear to auscultation. No respiratory distress.] HEART: [Regular rate and rhythm]. No murmur heard. [Normal peripheral pulses.] ABDOMEN: [Soft, nondistended], [nontender], [No rigidity or guarding] EXTREMITIES: Crepitus in the right elbow especially with pronation and supination of the wrist. Tenderness with palpation over the radial head, no step-offs. No obvious traumatic injuries, no lacerations or swelling. Pain with flexion extension at the elbow. Pain relief at rest. SKIN: Warm, dry, no rash. NEURO: [No focal deficits]. Alert and oriented [x3.] PSYCH: [Normal mood and affect.] Course Vital Signs Vital signs: Vital Signs Temperature 36.7 C 12/13/24 18:45 Pulse Rate 85 12/13/24 18:45 Respiratory Rate 16 12/13/24 18:45 Blood Pressure 163/88 H 12/13/24 18:45 Pulse Oximetry 99 12/13/24 18:45 Oxygen Delivery Room Air 12/13/24 18:45 Temperature 36.7 C 12/13/24 18:45 Pulse Rate 85 12/13/24 18:45 Respiratory Rate 16 12/13/24 18:45 Blood Pressure 163/88 H 12/13/24 18:45 Pulse Oximetry 99 12/13/24 18:45 Oxygen Delivery Room Air 12/13/24 18:45 MDM - Extremity Injury (Upper) MDM Narrative Medical decision making narrative: 79-year-old female with a past medical history including hypertension, CHF, atrial fibrillation on Eliquis. Patient presents to the emergency depart with right elbow pain. She states that she did not injure her fall or anything like that but that she was having some pain when she extended her elbow. Has a history of osteoporosis and arthritis. Has taken Tylenol at home without any pain relief as well as a tried to apply Biofreeze without any relief. No traumatic injuries. Was otherwise in her normal state of health. Good single pointed operator strength and wrist strength. She has a previous plate in her right wrist and a rotator cuff has been torn previously. No new injuries or medical status changes. Crepitus in the right elbow especially with pronation and supination of the wrist. Tenderness with palpation over the radial head, no step-offs. No obvious traumatic injuries, no lacerations or swelling. Pain with flexion extension at the elbow. Pain relief at rest. Hemodynamically stable, 2+ pulses, no traumatic injuries. X-rays of the forearm elbow were obtained to rule out occult injury given her age and potential risk factors. Most likely osteoarthritis or arthritis/degenerative changes given the crepitus and pain with manipulation but relief at rest. X-ray showed no acute osseous abnormalities aside from degenerative disease. Patient given a low-dose steroid as well as tramadol. Prescription sent to her pharmacy and she will follow-up with her retirement plan specialist which she has an appointment in 5 days for her shoulder. Medical Records Attestation: I reviewed the patient's medical records. Imaging Data Attestation: I personally reviewed and interpreted this imaging study as follows: My impression: Impressions Elbow X-Ray 12/13/24 19:53 IMPRESSION: Degenerative disease, without acute fracture. Forearm X-Ray 12/13/24 20:10 IMPRESSION: Degenerative disease, without acute fracture. Discharge Plan Discharge Clinical Impression: Degenerative joint disease of elbow, Arthritis pain, elbow Patient Disposition: Home Condition: Stable Instructions: Antibiotic Form, How to Use a Sling (ED) Additional Instructions: X-rays do not show anything broken but there is quite a bit of degenerative changes in the right elbow consistent with arthritis and wear and tear injury. We will treat this with a dose of tramadol for few days as well as low-dose prednisone for some pain control given your restraints on medications from past medical history. Follow-up with your retirement plan specialist this month on the and mention the elbow pain. Return with any emergent concerns. Patient Language: Pashto Prescriptions: New tramadol 50 mg tablet 50 mg PO Q6H PRN (Reason: pain) Qty: 14 0RF prednisone 20 mg tablet 20 mg PO DAILY Qty: 5 0RF No Action furosemide 40 mg tablet levothyroxine 100 mcg tablet cyanocobalamin (vitamin B-12) 1,000 mcg/mL solution ergocalciferol (vitamin D2) 1,250 mcg (50,000 unit) capsule Eliquis 5 mg tablet tramadol 50 mg tablet 50 mg PO Q6H PRN (Reason: pain) Qty: 10 0RF Follow-up/Referrals: Harvey,aDx Abraham MD [Primary Care Provider] - Time of Disposition: 21:16
[2024-12-13] MEDS: traMADol HCL (*CRX) 50 MG TABLET PO (21:14)
== END 2024-12-13 21:29 | disposition home or self-care (01) ==
PROVIDERS: Emergency Provider Student in an Organized Health Care Education/Training Program; PCP Internal Medicine
DX: M19.021 Primary osteoarthritis, right elbow (principal); I50.9 Heart failure, unspecified; I11.0 Hypertensive heart disease with heart failure; I48.91 Unspecified atrial fibrillation; Z96.651 Presence of right artificial knee joint; Z79.01 Long term (current) use of anticoagulants
CPT/HCPCS: 73080; 73090; 99283; A9270; J7512

== ENCOUNTER 2025-02-22 03:40 | Emergency (ER) | payer MEDICARE, SELFPAY ==
--- NOTE | ~2025-02-22 | XR_ITS ---
Examination: XR shoulder LT min 2V, XR shoulder RT min 2V Clinical History: fall Comparison: Left shoulder 11/03/2023 Technique: 4 views left shoulder, 2 views right shoulder Findings/impression: Left shoulder: 1. No fracture or dislocation left shoulder. 2. Diffuse sclerosis as before. Right shoulder: 1. No fracture or dislocation right shoulder. 2. Diffuse sclerosis as before. Reviewed, dictated and finalized at location R.
--- NOTE | ~2025-02-22 | XR_ITS ---
Examination: XR knee RT 3V, XR knee LT 3V Clinical History: fall, knee contusion/pain Comparison: Right knee 11/11/2022 Technique: 3 views right knee, 3 views left knee Findings/impression: Right knee: 1. Severe osteopenia makes evaluation difficult. 2. Arthroplasty intact. 3. Cortical step-offs along supracondylar femur probably chronic injury but superimposed process cannot be excluded. 4. No joint effusion. 5. Severe peripatellar soft tissue thickening. Left knee: 1. Arthroplasty intact without associated fracture. 2. No joint effusion. Reviewed, dictated and finalized at location R.
--- NOTE | ~2025-02-22 | XR_ITS ---
Examination: XR hip BI 2V w AP pelvis Clinical History: fall, hip pain Comparison: None Technique: AP pelvis, 2 views bilateral hip Findings/impression: 1. Fractured cement along distal femoral stem of right arthroplasty. Possibly chronic given lack of associated bony fracture. 2. Otherwise bilateral arthroplasty intact. No dislocation. 3. No pelvic fracture identified. Reviewed, dictated and finalized at location R.
--- NOTE | ~2025-02-22 | CT_ITS ---
CT HEAD NON-CONTRAST CT C-SPINE Clinical History: fall, on thinners Comparison: CT brain 11/03/2023 Technique: Unenhanced axial images skull base to vertex. Coronal, sagittal reformats. Axial images thoracic inlet to skull base. Sagittal and coronal reformats. CT images acquired with automatic exposure control for dose reduction DLP: 605 mGy-cm Findings: Head: Sulci, ventricles: Unremarkable. No intracerebral hemorrhage. No evidence acute territorial infarct. No mass effect, midline shift, intra-/extra-axial fluid collection. Bony calvarium intact. Visualized paranasal sinuses: Clear. Mastoid air cells: Clear. C-spine: Diffuse sclerosis persists. No acute fracture or listhesis. Moderate degenerative changes. Prevertebral soft tissues within normal limits. Visualized lung apices: Clear. Visualized thyroid: Unremarkable. No enlarged cervical nodes. IMPRESSION: HEAD: 1. No acute intracranial findings. C-SPINE: 1. No acute fracture. 2. Diffuse sclerosis persists. Consider metastases versus metabolic abnormality. Reviewed, dictated and finalized at location R. IMPRESSION: HEAD: 1. No acute intracranial findings. C-SPINE: 1. No acute fracture. 2. Diffuse sclerosis persists. Consider metastases versus metabolic abnormalit y.
--- NOTE | ~2025-02-22 | XR_ITS ---
Examination: XR elbow LT 2V, XR elbow RT 2V Clinical History: fall, elbow deformity Comparison: Right elbow x-rays 12/13/2024 Technique: 4 views left elbow, 2 views right elbow Findings/impression: Left elbow: 1. Displaced supracondylar fracture distal left humerus. 2. No additional acute abnormality identified. Right elbow: 1. Nondisplaced fracture proximal ulna, with minimal surrounding heterotopic bone suggesting subacute fracture but superimposed acute injury not excluded. 2. No additional acute abnormality identified Reviewed, dictated and finalized at location R.
[2025-02-22 03:40] VITALS: BP 144/99; PULSE 87; RESP 14; TEMP 36.6; O2SAT 99
--- NOTE | 2025-02-22 04:10 | ED.FALL ---
HPI - Fall General Chief Complaint: Fall Stated Complaint: fall, arm pain Time Seen by Provider: 02/22/25 04:10 Source: patient, family and EMS Mode of arrival: EMS Limitations: no limitations History of Present Illness HPI Narrative: This is a 79-year-old female with history of AFib, CHF, hypothyroidism who presents to the ED for a fall. Patient states that she was trying to get off the toilet when it stuck causing her to fall onto her bathroom for. She injured her left elbow and right knee and had to crawl to the phone to call her daughter. It took her a few hours to do this. Related Data Home Medications ?Medication ?Instructions ?Recorded ?Confirmed ?Last Taken ?Type apixaban 5 mg tablet (Eliquis) mg 11/02/19 11/11/22 Unknown History cyanocobalamin (vitamin B-12) 11/02/19 11/11/22 Unknown History 1,000 mcg/mL injection solution ergocalciferol (vitamin D2) 1,250 11/02/19 11/11/22 Unknown History mcg (50,000 unit) capsule furosemide 40 mg tablet 11/02/19 11/11/22 Unknown History levothyroxine 100 mcg tablet 11/02/19 11/11/22 Unknown History Allergies Allergy/AdvReac Type Severity Reaction Status Date / Time morphine Allergy Unknown UNKNOWN Verified 12/13/24 18:48 COUNT INCLUDES THE [facility] Surgical History Surgical History 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 Family History Family History Other Cerebrovascular accident Diabetes mellitus Family history of arthritis Family history of cardiovascular disease Family history of malignant neoplasm Family history of mental disorder Hypertension Social History Social History Smoking status: Never smoker Alcohol intake: never Gender identity (if verbalized by the patient): Female Sexual Orientation (if Verbalized by the Patient): Straight or Heterosexual Course Vital Signs Vital signs: Vital Signs Temperature 98 F 02/22/25 03:40 Pulse Rate 87 02/22/25 03:40 Respiratory Rate 14 02/22/25 03:40 Blood Pressure 144/99 H 02/22/25 03:40 Pulse Oximetry 99 02/22/25 03:40 Oxygen Delivery Room Air 02/22/25 03:40 Temperature 98 F 02/22/25 03:40 Pulse Rate 79 02/22/25 07:39 Respiratory Rate 16 02/22/25 07:39 Blood Pressure 165/104 H 02/22/25 07:39 Pulse Oximetry 97 02/22/25 07:39 Oxygen Delivery Room Air 02/22/25 03:40 MDM - Fall MDM Narrative Medical decision making narrative: 79-year-old female presenting for a fall. On initial evaluation, patient was no acute distress, afebrile, hemodynamically stable. She had contusions throughout her body but most notably to the right shoulder, left elbow, bilateral knees and to the bilateral hips. There is obvious deformity of the left elbow. Severe swelling of the right knee. No focal neurologic deficits. All extremities were warm to touch, neurovascularly intact. CBC noted leukocytosis of 15.7 with mild anemia at 9.8. CMP without significant abnormalities. UA showed 1+ blood without any evidence of infection. X-rays revealed a supracondylar fracture to the left distal humerus, a transverse right ulnar fracture. X-ray right hip revealed potential periosteal bending between the knee and hip prostheses potentially concerning for an occult fracture. I discussed the case with Dr. Lynch, orthopedic surgery, who did reveal the images and reported that there was fracture of the concrete of the proximal femur prosthesis concerning for an impending fracture. Given this, he did recommend [facility] for [facility] evaluation and management. Left elbow was placed in a posterior elbow splint. CT head and C-spine showed no acute abnormalities. Given that this is a polytrauma, I discussed the case with Dr. Hendrix, JANETH at [place] who will accept the patient in transfer. Patient and family were agreeable to this plan. Differential Diagnosis Differential diagnosis: Likely other (Fracture, sprain, strain, contusion, intracranial hemorrhage, syncope, ACS, arrhythmia) Medical Records Attestation: I reviewed the patient's medical records. Lab Data Attestation: I reviewed the patient's lab results. 02/22/25 04:30 02/22/25 04:30 Labs: Lab Results 02/22/25 02/22/25 Range/Units 04:30 05:52 WBC 15.7 H (4.5-10.0) K/mm3 RBC 2.99 L (4.2-5.4) M/mm3 Hgb 9.8 L D (12.0-15.0) g/dL Hct 31.1 L (37.0-47.0) % MCV 104.0 H (80-100) fl MCH 32.8 (26-34) pg MCHC 31.5 L (32-36) g/dl RDW 13.7 (11.5-14.5) % Plt Count 273 (150-375) k/mm3 MPV 9.8 (7.4-10.4) fl Immature Gran % (Auto) 0.4 (0-0.5) % Neut % (Auto) 87.4 H (45.5-73.1) % Lymph % (Auto) 4.8 L (18.3-44.2) % [place]oca % (Auto) 7.1 (2.6-8.5) % Eos % (Auto) 0.0 (0-4.4) % Baso % (Auto) 0.3 (0.2-1.2) % Lymph # (Auto) 0.75 L (0.9-3.2) K/mm3 [place]oca # (Auto) 1.1 H (0.1-0.6) K/mm3 Eos # (Auto) 0.0 (0-0.3) K/mm3 Baso # (Auto) 0.0 (0.0-0.1) K/mm3 Abs Immat Gran (auto) 0.07 H (0.00-0.031) K/mm3 Absolute Neuts (auto) 13.7 H (1.3-6.7) K/mm3 Absolute Nucleated RBC 0.000 (0.0-0.012) K/mm3 Nucleated RBC % 0.0 (0.0-0.2) % Sodium 133 L (137-145) mmol/L Potassium 3.5 (3.4-5.0) mmol/L Chloride 102 (98-107) mmol/L Carbon Dioxide 26 (22-30) mmol/L Anion Gap 5 (4-12) mmol/L BUN 15 (7-17) mg/dL Creatinine 0.65 L (0.7-1.0) mg/dL Estim Creat Clear Calc 54 ml/min Estimated GFR > 60 (59 - ) Glucose 127 H (65-110) mg/dL Calcium 8.5 (8.4-10.2) mg/dL Total Bilirubin 0.7 (0.2-1.3) mg/dL AST 36 (14-36) U/L ALT 18 (6-35) U/L Alkaline Phosphatase 136 H (38-126) U/L Total Creatine Kinase 285 H (30-135) U/L Total Protein 5.8 L (6.3-8.2) g/dL Albumin 3.1 L (3.5-5.1) g/dL Urine Color Yellow (Yellow) Urine Appearance Clear (Clear) Urine pH 5.0 (5.0-9.0) Ur Specific [place] 1.016 (1.001-1.035) Urine Protein 1+ H (Negative) mg/dL Urine Glucose (UA) Negative (Negative) mg/dL Urine Ketones Trace H (Negative) mg/dL Ur Blood (Man) 1+ H (Negative) Urine Nitrate Negative (Negative) Urine Bilirubin Negative (Negative) Urine Urobilinogen 0.2 (<2.0) mg/dL Add Ur Microanalysis Reviewed Leukocyte Esterase Rfl Negative (Negative) TONI/UL Urine RBC 0-2 (0-2) /hpf Urine WBC 0-5 (0-3) /hpf Ur Squamous Epith Cells None seen (Few) /hpf Calcium Oxalate Crystal Present (None) /hpf Urine Bacteria None seen /hpf Urine Casts 3-5 Hyaline Casts Present (None) /lpf Imaging Data Attestation: I personally reviewed and interpreted this imaging study as follows: My impression: Left elbow x-ray: Supracondylar fracture. Right elbow x-ray: Transverse fracture of the proximal ulna. Bilateral hip and pelvis x-ray: Increased angulation of the right femur at the level of the distal right femoral stem Right knee: Total knee arthroplasty, prepatellar soft tissue swelling Left knee: No obvious fracture identified Radiologist's impression: Impressions Cervical Spine CT 02/22/25 06:35 IMPRESSION: HEAD: 1. No acute intracranial findings. C-SPINE: 1. No acute fracture. 2. Diffuse sclerosis persists. Consider metastases versus metabolic abnormality. Head CT 02/22/25 06:35 IMPRESSION: HEAD: 1. No acute intracranial findings. C-SPINE: 1. No acute fracture. 2. Diffuse sclerosis persists. Consider metastases versus metabolic abnormality. Discharge Plan Discharge Clinical Impression: Supracondylar fracture of humerus Qualifiers: Encounter type: initial encounter Fracture type: closed Laterality: left Qualified Code(s): S42.412A - Displaced simple supracondylar fracture without intercondylar fracture of left humerus, initial encounter for closed fracture Fracture, ulna, proximal Qualifiers: Encounter type: initial encounter Fracture type: closed Fracture morphology: other fracture Laterality: right Qualified Code(s): S52.091A - Other fracture of upper end of right ulna, initial encounter for closed fracture Periprosthetic fracture around internal prosthetic joint Qualifiers: Internal joint prosthesis site: hip Encounter type: initial encounter Laterality: right Qualified Code(s): M97.01XA - Periprosthetic fracture around internal prosthetic right hip joint, initial encounter Fall Qualifiers: Encounter type: initial encounter Qualified Code(s): W19.XXXA - Unspecified fall, initial encounter Patient Disposition: Acute Care Hospital Condition: Serious Patient Language: Macedonian Prescriptions: No Action tramadol 50 mg tablet 50 mg PO Q6H PRN (Reason: pain) Qty: 14 0RF prednisone 20 mg tablet 20 mg PO DAILY Qty: 5 0RF furosemide 40 mg tablet levothyroxine 100 mcg tablet cyanocobalamin (vitamin B-12) 1,000 mcg/mL solution ergocalciferol (vitamin D2) 1,250 mcg (50,000 unit) capsule Eliquis 5 mg tablet tramadol 50 mg tablet 50 mg PO Q6H PRN (Reason: pain) Qty: 10 0RF Follow-up/Referrals: Harvey,Dax Abraham MD [Primary Care Provider, Unknown]
[2025-02-22] MEDS: ONDANSETRON INJ 4 MG/2 ML VIAL IV PUSH (04:32)
[2025-02-22] MEDS: HYDROmorphone HCL INJ (*CRX) 1 MG/ML SYR 0.5 MG IV PUSH ×2 (04:32→07:01)
[2025-02-22 04:42] LABS: Hematocrit 31.1 % (37.0-47.0); Hemoglobin 9.8 g/dL (12.0-15.0); Immature Granulocyte Percent A 0.4 % (0-0.5); Lymphocytes Absolute Auto 0.75 K/mm3 (0.9-3.2); Mean Corpuscular HGB Conc 31.5 g/dl (32-36); Mean Corpuscular Hemoglobin 32.8 pg (26-34); Mean Corpuscular Volume 104.0 fl (80-100); Nucleated Red Blood Cells Absolute Auto 0.000 K/mm3 (0.0-0.012); Nucleated Red Blood Cells Perc 0.0 % (0.0-0.2); Platelet Count Result 273 k/mm3 (150-375); Red Blood Count 2.99 M/mm3 (4.2-5.4); White Blood Count 15.7 K/mm3 (4.5-10.0)
[2025-02-22 04:52] LABS: Alanine Aminotransferase 18 U/L (6-35); Albumin Level 3.1 g/dL (3.5-5.1); Alkaline Phosphatase 136 U/L (38-126); Anion Gap 5 mmol/L (4-12); Aspartate Amino Transferase 36 U/L (14-36); Bilirubin,Total 0.7 mg/dL (0.2-1.3); Blood Urea Nitrogen 15 mg/dL (7-17); Calcium 8.5 mg/dL (8.4-10.2); Carbon Dioxide 26 mmol/L (22-30); Chloride 102 mmol/L (98-107); Creatine Kinase 285 U/L (30-135); Estimated CRCL calculation 54 ml/min; Estimated Glomerular Filt Rate > 60; Glucose 127 mg/dL (65-110); Potassium 3.5 mmol/L (3.4-5.0); Sodium 133 mmol/L (137-145); Total Protein 5.8 g/dL (6.3-8.2)
[2025-02-22 05:53] VITALS: PULSE 82; RESP 18; O2SAT 99
[2025-02-22 06:01] VITALS: BP 175/108; PULSE 75; RESP 14; O2SAT 100
[2025-02-22 06:13] LABS: Add Urine Microscopic? YES; Appearance Urine Clear (Clear); Glucose Urine UA Negative (Negative); Leukocyte Esterase Ur Negative LEU/UL (Negative); Need Manual Microscopic Reviewed; Nitrate Urine Negative (Negative); Specific Grav Ur 1.016 (1.001-1.035)
--- NOTE | 2025-02-22 07:37 | PC.NURSE ---
long arm posterior fiberglass splint placed on to left arm.
[2025-02-22 07:39] VITALS: BP 165/104; PULSE 79; RESP 16; O2SAT 97
== END 2025-02-22 08:26 | disposition short-term general hospital (02) ==
LOC: ANHED 04:30
PROVIDERS: Emergency Provider Student in an Organized Health Care Education/Training Program; PCP Internal Medicine
DX: S42.412A Displaced simple supracondylar fracture without intercondylar fracture of left humerus, initial encounter for closed fracture (principal); S52.091A Other fracture of upper end of right ulna, initial encounter for closed fracture; M97.01XA Periprosthetic fracture around internal prosthetic right hip joint, initial encounter; I50.9 Heart failure, unspecified; I48.91 Unspecified atrial fibrillation; E03.9 Hypothyroidism, unspecified; M85.861 Other specified disorders of bone density and structure, right lower leg; Z96.653 Presence of artificial knee joint, bilateral; M89.9 Disorder of bone, unspecified; W18.11XA Fall from or off toilet without subsequent striking against object, initial encounter
CPT/HCPCS: 29105; 36415; 70450; 72125; 73030; 73070; 73521; 73562; 80053; 81001; 82550; 85025; 96374; 96375; 99285; A4565; J1171; J2405